=== PATIENT | male | born 1965 | race African-American/Black ===

== ENCOUNTER 2016-11-24 09:51 | Inpatient (IN) | payer OTHER ==
[2016-11-24 10:17] VITALS: BMI 21.5
--- NOTE | 2016-11-24 10:30 | HP ---
CIWA Score - CIWA Score Nausea/Vomitin-Mild Nausea/No Vomiting Muscle Tremors: 4-Moderate,w/Arms Extend Anxiety: 4-Mod. Anxious/Guarded Agitation: 1-Slight > Activity Paroxysmal Sweats: 1-Minimal Palms Moist Orientation: 1-Uncertain about Date Tacttile Disturbances: 1-Very Mild Itch/Numbness Auditory Disturbances: 1-Very Mild Visual Disturbances: 1-Very Mild Sensitivity Headache: 1-Very Mild CIWA-Ar Total Score: 16 Admission ROS BHS - HPI Chief Complaint: I need a hand to stop, I can't do it on my own Allergies/Adverse Reactions: Allergies Allergy/AdvReac Type Severity Reaction Status Date / Time No Known Drug Allergies Allergy Verified 07/20/16 16:04 egg AdvReac Intermediate Vomiting Verified 07/20/16 16:04 mayonaise Allergy Intermediate Swelling Uncoded 07/20/16 16:04 History of Present Illness: 51 yo gentleman here for detox from alcohol - one of several admissions, history of alcohol related seizure and black out - last seizure in june 2016 (poor memory however). Exam Limitations: Clinical Condition - Ebola screening Have you traveled outside of the country in the last 21 days: No Have you had contact with anyone from an Ebola affected area: No Have you been sick,other than usual withdrawal symptoms: No Do you have a fever: No Patient History - Patient Medical History Hx Anemia: No Hx Asthma: No Hx Chronic Obstructive Pulmonary Disease (COPD): No Hx Cancer: No Hx Cardiac Disorders: No Hx Congestive Heart Failure: No Hx Hypertension: No Hx Hypercholesterolemia: No Hx Pacemaker: No HX Cerebrovascular Accident: No Hx Seizures: Yes (alcohol related-07/16/2016) Hx Dementia: No Hx Diabetes: No Hx Gastrointestinal Disorders: No Hx Liver Disease: No Hx Genitourinary Disorders: No Hx Sexually Transmitted Disorders: No Hx Renal Disease (ESRD): No Hx Thyroid Disease: No Hx Human Immunodeficiency Virus (HIV): No (neg 07/21/16) Hx Hepatitis C: No Hx Depression: Yes (never hospitalized) Hx Suicide Attempt: No Hx Bipolar Disorder: No Hx Schizophrenia: No - Patient Surgical History Past Surgical History: No Hx Neurologic Surgery: No Hx Cataract Extraction: No Hx Cardiac Surgery: No Hx Lung Surgery: No Hx Breast Surgery: No Hx Breast Biopsy: No Hx Abdominal Surgery: No Hx Appendectomy: No Hx Cholecystectomy: No Hx Genitourinary Surgery: No Hx Section: No Hx Orthopedic Surgery: No Anesthesia Reaction: No - PPD History Previous Implant?: Yes Documented Results: Negative w/proof Date: 01/19/16 Results: 0 mm PPD to be Administered?: No - Reproductive History Patient is a Female of Child Bearing Age (11 -55 yrs old): No (male) - Smoking Cessation Smoking history: Current every day smoker Have you smoked in the past 12 months: Yes Aproximately how many cigarettes per day: 20 Cigars Per Day: 0 Hx Chewing Tobacco Use: No Initiated information on smoking cessation: Yes 'Breaking Loose' booklet given: 11/24/16 (give on floor) - Substance & Tx. History Hx Alcohol Use: Yes Hx Substance Use: No Substance Use Type: Alcohol Hx Substance Use Treatment: Yes (detox, rehab) - Substances Abused Alcohol Route: Oral Frequency: Daily Amount used: 1 pint Age of first use: 15 Date of Last Use: 11/24/16 Family Disease History - Family Disease History Family Disease History: Other: Father (alive, etoh), Brother (NO CONTACT) Admission Physical Exam [facility] - Vital Signs Vital Signs: Vital Signs - 24 hr 11/24/16 10:15 Temperature 98.3 F Pulse Rate 97 H Respiratory 18 Rate Blood Pressure 115/83 - Physical General Appearance: Yes: Nourished, Appropriately Dressed, Mild Distress, Thin, Tremorous, Anxious HEENTM: Yes: Hearing grossly Normal, Normocephalic, Normal Voice, Pharynx Normal Respiratory: Yes: Normal Breath Sounds, No Respiratory Distress Neck: Yes: No masses,lesions,Nodules, Supple Breast: Yes: Breast Exam Deferred Cardiology: Yes: Regular Rhythm, Regular Rate Abdominal: Yes: Soft Genitourinary: Yes: Frequency Back: Yes: Normal Inspection Musculoskeletal: Yes: full range of Motion, Gait Steady Extremities: Yes: Normal Inspection, Normal Range of Motion, Non-Tender Neurological: Yes: Fully Oriented, Alert, Motor Strength 5/5, Normal Mood/Affect , Normal Response Integumentary: Yes: Normal Color, Warm Lymphatic: Yes: Within Normal Limits - Diagnostic (1) Alcohol dependence with uncomplicated withdrawal Current Visit: Yes Status: Chronic (2) Nicotine dependence Current Visit: Yes Status: Chronic Qualifiers: Nicotine product type: cigarettes Substance use status: uncomplicated Qualified Code(s): F17.210 - Nicotine dependence, cigarettes, uncomplicated Cleared for Admission S - Detox or Rehab [facility] Level of Care: Medically Managed Detox Regimen/Protocol: Librium S Breath Alcohol Content Breath Alcohol Content: 0 Urine Drug Screen - Results Drug Screen Negative: No Urine Drug Screen Results: TCA-Tricyclic Antidepress
[2016-11-24] MEDS ORDERED: MAGNESIUM HYDROX 2400MG/30ML ORAL SUSPENSION 30 ML CUP PO PRN (10:31)
[2016-11-24] MEDS ORDERED: IBUPROFEN 400 MG TABLET (FP) PO PRN (10:31)
[2016-11-24] MEDS ORDERED: MENTHOL/PHENOL 1 EACH UD MM PRN (10:31)
[2016-11-24] MEDS ORDERED: P-EPHED 60MG/TRIPROLIDI 2.5MG TABLET PO PRN (10:31)
[2016-11-24] MEDS ORDERED: hydrOXYzine PAMOATE 50 MG CAPSULE (FP) PO PRN (10:31)
[2016-11-24] MEDS ORDERED: chlordiazePOXIDE HCL 25 MG CAPSULE PO PRN (10:31)
[2016-11-24] MEDS ORDERED: MAG HYDROX/AL HYDROX/SIMETH 30 ML UNIT-DOSE CUP PO PRN (10:31)
[2016-11-24] MEDS ORDERED: LOPERAMIDE HCL 2 MG CAPSULE PO PRN (10:31)
[2016-11-24] MEDS ORDERED: ACETAMINOPHEN 325 MG TABLET (FP) PO PRN (10:31)
[2016-11-24] MEDS ORDERED: guaiFENesin/D-METHORPHAN HB 10 ML UNIT-DOSE CUPS PO PRN (10:31)
[2016-11-24] MEDS ORDERED: MAGNESIUM CITRATE 300 ML BOTTLE PO PRN (10:31)
[2016-11-24] MEDS ORDERED: chlordiazePOXIDE HCL 25 MG CAPSULE PO ONE (11:30)
[2016-11-24] MEDS: NICOTINE 21 MG/24 HOURS TOPICAL PATCH TD SCH (12:07)
--- NOTE | 2016-11-24 16:28 | CONSULT ---
[facility] Psychiatric Consult - Data Date of interview: 11/24/16 Admission source: [facility] Identifying data: Readmission to [facility] for this 51 y/o [place]-born male seeking detox treatment on for alcohol dependence.Patient is ,a father of one,now homeless,unemployed and deprived of any means of income. Substance Abuse History: - Smoking Cessation. Smoking history: Current every day smoker. Have you smoked in the past 12 months: Yes. Aproximately how many cigarettes per day: 20. Cigars Per Day: 0. Hx Chewing Tobacco Use: No. Initiated information on smoking cessation: Yes. 'Breaking Loose' booklet given : 11/24/16 (give on floor). - Substance & Tx. History. Hx Alcohol Use: Yes. Hx Substance Use: No. Substance Use Type: Alcohol. Hx Substance Use Treatment : Yes (detox, rehab). - Substances Abused. Alcohol. Route: Oral. Frequency: Daily. Amount used: 1 pint. Age of first use: 15. Date of Last Use : 11/24/16. Confirmed by patient in this interview. Medical History: GERD and seizure disorder. Psychiatric History: Patient denies. Physical/Sexual Abuse/Trauma History: Patient denies. Additional Comment: Urine Drug Screen Results: TCA-Tricyclic Antidepressant.Noted. Mental Status Exam - Mental Status Exam Alert and Oriented to: Time, Place, Person Cognitive Function: Good Patient Appearance: Disheveled Mood: Anxious, Apprehensive Affect: Mood Congruent Patient Behavior: Fatigued, Cooperative Speech Pattern: Clear Voice Loudness: Normal Thought Process: Goal Oriented Thought Disorder: Not Present Hallucinations: Denies Suicidal Ideation: Denies Homicidal Ideation: Denies Insight/Judgement: Fair Sleep: Poorly, Difficulty falling asleep Appetite: Good Muscle strength/Tone: Normal Gait/Station: Normal Psychiatric Findings - Problem List ([place] 1, 2,3) (1) Alcohol dependence with uncomplicated withdrawal Current Visit: Yes Status: Acute (2) Nicotine dependence Current Visit: Yes Status: Acute Qualifiers: Nicotine product type: cigarettes Substance use status: uncomplicated Qualified Code(s): F17.210 - Nicotine dependence, cigarettes, uncomplicated (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
[2016-11-24] MEDS: chlordiazePOXIDE HCL 25 MG CAPSULE PO SCH ×2 (17:21→23:01)
[2016-11-24 19:16] LABS: URINE APPEARANCE SLCLOUDY; URINE BILIRUBIN NEGATIVE (NEGATIVE); URINE COLOR AMBER; URINE GLUCOSE (UA) NEGATIVE (NEGATIVE); URINE KETONE 1+ (NEGATIVE); URINE NITRITE NEGATIVE (NEGATIVE); URINE PROTEIN NEGATIVE (NEGATIVE); URINE UROBILINOGEN 2.0 E.U/dl E.U./dl (0.2-1.0)
[2016-11-24 19:17] LABS: URINE BLOOD 2+ (NEGATIVE); URINE LEUK ESTERASE 2+ (NEGATIVE)
[2016-11-24 19:54] LABS: URINE BACTERIA FEW /hpf (NONE SEEN)
--- NOTE | 2016-11-24 21:01 | EKG ---
Test Reason : Blood Pressure : / mmHG Vent. Rate : 083 BPM Atrial Rate : 083 BPM P-R Int : 126 ms QRS Dur : 062 ms QT Int : 354 ms P-R-T Axes : 076 050 048 degrees QTc Int : 415 ms NORMAL SINUS RHYTHM NORMAL ECG NO PREVIOUS ECGS AVAILABLE Confirmed by CHENTE NAVARRETE MD ([id number]) on 11/24/2016 9:00:59 PM Referred By: Confirmed By:CHENTE NAVARRETE MD
[2016-11-24] MEDS ORDERED: diphenhydrAMINE HCL 50 MG CAPSULE PO PRN (22:00)
[2016-11-24] MEDS: THIAMINE HCL 100 MG TABLET (FP) PO SCH (23:01)
[2016-11-25] MEDS: chlordiazePOXIDE HCL 25 MG CAPSULE PO SCH ×4 (06:15→22:15)
[2016-11-25] MEDS: PRENATAL VITAMINS W/ FOLIC ACID TABLET (FP) PO SCH (10:16)
[2016-11-25] MEDS: NICOTINE 21 MG/24 HOURS TOPICAL PATCH TD SCH (10:16)
[2016-11-25 10:21] LABS: MCH 31.2 pg (25.7-33.7); MCHC 33.2 g/dl (32.0-35.9); MEAN PLT VOLUME 8.6 fl (7.5-11.1); PLATELET COUNT 145 K/MM3 (134-434); RDW 13.6 % (11.9-15.9); WHITE BLOOD COUNT 4.7 K/mm3 (4.0-10.0)
[2016-11-25 10:34] LABS: ALBUMIN 3.3 g/dl (3.4-5.0); ANION GAP 8 (8-16); CALCIUM 8.3 mg/dL (8.5-10.1); CO2 28 mmol/L (21-32); GLUCOSE,RANDOM 99 mg/dL (74-106)
[2016-11-25 10:38] LABS: ALK PHOS 89 U/L (45-117); BILIRUBIN,TOTAL 0.3 mg/dL (0.2-1.0); CREATININE 0.8 mg/dL (0.7-1.3); SGOT/AST 42 U/L (15-37); SGPT/ALT 41 U/L (12-78); TOT PROT 6.1 g/dl (6.4-8.2)
[2016-11-25 14:47] LABS: HIV 1 & 2 AB NEGATIVE; HIV 1 AGp24 NEGATIVE
--- NOTE | 2016-11-25 14:51 | PN ---
S CIWA - CIWA Score Nausea/Vomitin Muscle Tremors: 4-Moderate,w/Arms Extend Anxiety: 4-Mod. Anxious/Guarded Agitation: 4-Moderately Restless Paroxysmal Sweats: No Perspiration Orientation: 0-Oriented Tacttile Disturbances: 1-Very Mild Itch/Numbness Auditory Disturbances: 0-None Visual Disturbances: 0-None Headache: 2-Mild CIWA-Ar Total Score: 18 BHS Progress Note (SOAP) Subjective: Anxious, sweating, tremor, interrupted sleep, nausea Objective: Last Vital Signs Temp Pulse Resp BP Pulse Ox 97.0 F L 106 H 20 135/93 11/25/16 13:10 11/25/16 13:10 11/25/16 13:10 11/25/16 13:10 Laboratory Tests 11/24/16 11/25/16 11/25/16 18:00 08:00 08:00 WBC 4.7 RBC 4.30 Hgb 13.4 Hct 40.4 MCV 94.0 MCHC 33.2 RDW 13.6 Plt Count 145 D MPV 8.6 Sodium 142 Potassium 3.9 Chloride 106 Carbon Dioxide 28 Anion Gap 8 BUN 9 Creatinine 0.8 Creat Clearance w eGFR > 60 Random Glucose 99 Calcium 8.3 L Total Bilirubin 0.3 D AST 42 H D ALT 41 Alkaline Phosphatase 89 Total Protein 6.1 L Albumin 3.3 L Urine Color Kelsey Urine Appearance Slcloudy Urine pH 6.0 Ur Specific [place] 1.024 Urine Protein Negative Urine Glucose (UA) Negative Urine Ketones 1+ H Urine Blood 2+ H Urine Nitrite Negative Urine Bilirubin Negative Urine Urobilinogen 2.0 e.u/dl Ur Leukocyte Esterase 2+ H Urine RBC 6-9 Urine WBC 10-15 Urine Bacteria Few HIV 1&2 Antibody Screen HIV P24 Antigen 11/25/16 08:00 WBC RBC Hgb Hct MCV MCHC RDW Plt Count MPV Sodium Potassium Chloride Carbon Dioxide Anion Gap BUN Creatinine Creat Clearance w eGFR Random Glucose Calcium Total Bilirubin AST ALT Alkaline Phosphatase Total Protein Albumin Urine Color Urine Appearance Urine pH Ur Specific [place] Urine Protein Urine Glucose (UA) Urine Ketones Urine Blood Urine Nitrite Urine Bilirubin Urine Urobilinogen Ur Leukocyte Esterase Urine RBC Urine WBC Urine Bacteria HIV 1&2 Antibody Screen Negative HIV P24 Antigen Negative Labs noted: Abnormal UA (microscopic hematuria) Assessment: 11/25/16 14:50 Withdrawal symptoms Abnormal UA/Microscopic hematuria Plan: Continue detox Abnormal UA/Microscopic hematuria: encouraged to drink lots of water, repeat UA and send urine C&S to rule out UTI
[2016-11-25 17:41] LABS: URINE APPEARANCE CLEAR; URINE BILIRUBIN NEGATIVE (NEGATIVE); URINE BLOOD NEGATIVE (NEGATIVE); URINE COLOR YELLOW; URINE GLUCOSE (UA) NEGATIVE (NEGATIVE); URINE KETONE NEGATIVE (NEGATIVE); URINE NITRITE NEGATIVE (NEGATIVE); URINE PROTEIN NEGATIVE (NEGATIVE); URINE UROBILINOGEN NEGATIVE E.U./dl (0.2-1.0)
[2016-11-25 17:42] LABS: URINE LEUK ESTERASE TRACE (NEGATIVE)
[2016-11-25 17:45] LABS: URINE BACTERIA RARE /hpf (NONE SEEN); URINE MUCUS RARE; URINE RBC <1 /hpf (0-3); URINE WBC 30 /hpf (3-5)
[2016-11-25] MEDS: THIAMINE HCL 100 MG TABLET (FP) PO SCH (22:15)
[2016-11-26] MEDS: chlordiazePOXIDE HCL 25 MG CAPSULE PO SCH ×2 (05:34→10:10)
[2016-11-26] MEDS: PRENATAL VITAMINS W/ FOLIC ACID TABLET (FP) PO SCH (10:10)
[2016-11-26] MEDS: NICOTINE 21 MG/24 HOURS TOPICAL PATCH TD SCH (10:10)
--- NOTE | 2016-11-26 11:22 | PN ---
S CIWA - CIWA Score Nausea/Vomitin-No Nausea/No Vomiting Muscle Tremors: 3 Anxiety: 4-Mod. Anxious/Guarded Agitation: 3 Paroxysmal Sweats: 3 Orientation: 0-Oriented Tacttile Disturbances: 0-None Auditory Disturbances: 0-None Visual Disturbances: 0-None Headache: 0-None Present CIWA-Ar Total Score: 13 BHS Progress Note (SOAP) Subjective: Anxiety,tremors,sweating,interrupted sleep,restless Objective: 11/26/16 11:22 Vital Signs - 8 hr 11/26/16 11/26/16 11/26/16 03:28 06:04 09:41 Temperature 96.1 F L 96.4 F L Pulse Rate 78 64 Respiratory 18 18 18 Rate Blood Pressure 119/90 116/89 Laboratory Tests 11/24/16 11/25/16 11/25/16 18:00 08:00 08:00 WBC 4.7 RBC 4.30 Hgb 13.4 Hct 40.4 MCV 94.0 MCHC 33.2 RDW 13.6 Plt Count 145 D MPV 8.6 Sodium 142 Potassium 3.9 Chloride 106 Carbon Dioxide 28 Anion Gap 8 BUN 9 Creatinine 0.8 Creat Clearance w eGFR > 60 Random Glucose 99 Calcium 8.3 L Total Bilirubin 0.3 D AST 42 H D ALT 41 Alkaline Phosphatase 89 Total Protein 6.1 L Albumin 3.3 L Urine Color Kelsey Urine Appearance Slcloudy Urine pH 6.0 Ur Specific [place] 1.024 Urine Protein Negative Urine Glucose (UA) Negative Urine Ketones 1+ H Urine Blood 2+ H Urine Nitrite Negative Urine Bilirubin Negative Urine Urobilinogen 2.0 e.u/dl Ur Leukocyte Esterase 2+ H Urine RBC 6-9 Urine WBC 10-15 Ur Epithelial Cells Urine Bacteria Few Urine Mucus RPR Titer HIV 1&2 Antibody Screen HIV P24 Antigen 11/25/16 11/25/16 11/25/16 08:00 08:00 15:07 WBC RBC Hgb Hct MCV MCHC RDW Plt Count MPV Sodium Potassium Chloride Carbon Dioxide Anion Gap BUN Creatinine Creat Clearance w eGFR Random Glucose Calcium Total Bilirubin AST ALT Alkaline Phosphatase Total Protein Albumin Urine Color Yellow Urine Appearance Clear Urine pH 8.0 D Ur Specific [place] 1.020 Urine Protein Negative Urine Glucose (UA) Negative Urine Ketones Negative Urine Blood Negative Urine Nitrite Negative Urine Bilirubin Negative Urine Urobilinogen Negative Ur Leukocyte Esterase Trace H D Urine RBC <1 Urine WBC 30 Ur Epithelial Cells Rare Urine Bacteria Rare Urine Mucus Rare RPR Titer Nonreactive HIV 1&2 Antibody Screen Negative HIV P24 Antigen Negative labs noted Assessment: 11/26/16 11:23 Withdrawal sx. Plan: Continue detox
[2016-11-26] MEDS: chlordiazePOXIDE 5 MG CAPSULE PO SCH ×2 (17:08→22:12)
[2016-11-26] MEDS: THIAMINE HCL 100 MG TABLET (FP) PO SCH (22:12)
[2016-11-27] MEDS: chlordiazePOXIDE 5 MG CAPSULE PO SCH ×2 (05:46→10:12)
--- NOTE | 2016-11-27 09:34 | PN ---
BHS Progress Note (SOAP) Subjective: Sweating,interrupted sleep,restless Objective: 11/27/16 09:32 Vital Signs - 8 hr 11/27/16 11/27/16 03:26 06:05 Temperature 97.4 F L Pulse Rate 88 Respiratory 18 18 Rate Blood Pressure 144/99 Laboratory Tests 11/24/16 11/25/16 11/25/16 18:00 08:00 08:00 WBC 4.7 RBC 4.30 Hgb 13.4 Hct 40.4 MCV 94.0 MCHC 33.2 RDW 13.6 Plt Count 145 D MPV 8.6 Sodium Potassium Chloride Carbon Dioxide Anion Gap BUN Creatinine Creat Clearance w eGFR Random Glucose Calcium Total Bilirubin AST ALT Alkaline Phosphatase Total Protein Albumin Urine Color Kelsey Urine Appearance Slcloudy Urine pH 6.0 Ur Specific [place] 1.024 Urine Protein Negative Urine Glucose (UA) Negative Urine Ketones 1+ H Urine Blood 2+ H Urine Nitrite Negative Urine Bilirubin Negative Urine Urobilinogen 2.0 e.u/dl Ur Leukocyte Esterase 2+ H Urine RBC 6-9 Urine WBC 10-15 Ur Epithelial Cells Urine Bacteria Few Urine Mucus RPR Titer Hepatitis C Antibody 0.1 HIV 1&2 Antibody Screen HIV P24 Antigen 11/25/16 11/25/16 11/25/16 08:00 08:00 08:00 WBC RBC Hgb Hct MCV MCHC RDW Plt Count MPV Sodium 142 Potassium 3.9 Chloride 106 Carbon Dioxide 28 Anion Gap 8 BUN 9 Creatinine 0.8 Creat Clearance w eGFR > 60 Random Glucose 99 Calcium 8.3 L Total Bilirubin 0.3 D AST 42 H D ALT 41 Alkaline Phosphatase 89 Total Protein 6.1 L Albumin 3.3 L Urine Color Urine Appearance Urine pH Ur Specific [place] Urine Protein Urine Glucose (UA) Urine Ketones Urine Blood Urine Nitrite Urine Bilirubin Urine Urobilinogen Ur Leukocyte Esterase Urine RBC Urine WBC Ur Epithelial Cells Urine Bacteria Urine Mucus RPR Titer Nonreactive Hepatitis C Antibody HIV 1&2 Antibody Screen Negative HIV P24 Antigen Negative 11/25/16 15:07 WBC RBC Hgb Hct MCV MCHC RDW Plt Count MPV Sodium Potassium Chloride Carbon Dioxide Anion Gap BUN Creatinine Creat Clearance w eGFR Random Glucose Calcium Total Bilirubin AST ALT Alkaline Phosphatase Total Protein Albumin Urine Color Yellow Urine Appearance Clear Urine pH 8.0 D Ur Specific [place] 1.020 Urine Protein Negative Urine Glucose (UA) Negative Urine Ketones Negative Urine Blood Negative Urine Nitrite Negative Urine Bilirubin Negative Urine Urobilinogen Negative Ur Leukocyte Esterase Trace H D Urine RBC <1 Urine WBC 30 Ur Epithelial Cells Rare Urine Bacteria Rare Urine Mucus Rare RPR Titer Hepatitis C Antibody HIV 1&2 Antibody Screen HIV P24 Antigen labs noted, U/C&S is still pending Assessment: 11/27/16 09:33 Withdrawal sx. Plan: Continue detox
[2016-11-27] MEDS: NICOTINE 21 MG/24 HOURS TOPICAL PATCH TD SCH (10:12)
[2016-11-27] MEDS: PRENATAL VITAMINS W/ FOLIC ACID TABLET (FP) PO SCH (10:12)
[2016-11-27] MEDS: chlordiazePOXIDE HCL 10 MG CAPSULE PO SCH ×2 (17:14→22:11)
[2016-11-27] MEDS: THIAMINE HCL 100 MG TABLET (FP) PO SCH (22:10)
[2016-11-28] MEDS: chlordiazePOXIDE HCL 10 MG CAPSULE PO SCH (05:54)
[2016-11-28 06:00] VITALS: PULSE 85
[2016-11-28 09:16] VITALS: BP 132/90; TEMP 96.4
--- NOTE | 2016-11-28 14:34 | DS ---
[facility] Detox Discharge Summary Admission Date: 11/24/16 Discharge Date: 11/28/16 - History Present History: Alcohol Dependence Pertinent Past History: GERD Umbilical hernia - Physical Exam Results Vital Signs: Vital Signs Temperature 96.4 F L 11/28/16 09:16 Pulse Rate 85 11/28/16 09:16 Respiratory Rate 18 11/28/16 09:16 Blood Pressure 132/90 11/28/16 09:16 O2 Sat by Pulse Oximetry (%) Pertinent Admission Physical Exam Findings: Withdrawal sx. Laboratory Last Values WBC 4.7 K/mm3 (4.0-10.0) 11/25/16 08:00 RBC 4.30 M/mm3 (4.00-5.60) 11/25/16 08:00 Hgb 13.4 GM/dL (11.7-16.9) 11/25/16 08:00 Hct 40.4 % (35.4-49) 11/25/16 08:00 MCV 94.0 fl (80-96) 11/25/16 08:00 MCHC 33.2 g/dl (32.0-35.9) 11/25/16 08:00 RDW 13.6 % (11.9-15.9) 11/25/16 08:00 Plt Count 145 K/MM3 (134-434) D 11/25/16 08:00 MPV 8.6 fl (7.5-11.1) 11/25/16 08:00 Sodium 142 mmol/L (136-145) 11/25/16 08:00 Potassium 3.9 mmol/L (3.5-5.1) 11/25/16 08:00 Chloride 106 mmol/L (98-107) 11/25/16 08:00 Carbon Dioxide 28 mmol/L (21-32) 11/25/16 08:00 Anion Gap 8 (8-16) 11/25/16 08:00 BUN 9 mg/dL (7-18) 11/25/16 08:00 Creatinine 0.8 mg/dL (0.7-1.3) 11/25/16 08:00 Creat Clearance w eGFR > 60 (>60) 11/25/16 08:00 Random Glucose 99 mg/dL (74-106) 11/25/16 08:00 Calcium 8.3 mg/dL (8.5-10.1) L 02/26/17 08:00 Total Bilirubin 0.3 mg/dL (0.2-1.0) D 11/25/16 08:00 AST 42 U/L (15-37) H D 11/25/16 08:00 ALT 41 U/L (12-78) 11/25/16 08:00 Alkaline Phosphatase 89 U/L (45-117) 11/25/16 08:00 Total Protein 6.1 g/dl (6.4-8.2) L 11/25/16 08:00 Albumin 3.3 g/dl (3.4-5.0) L 11/25/16 08:00 Urine Color Yellow 11/25/16 15:07 Urine Appearance Clear 11/25/16 15:07 Urine pH 8.0 (5.0-8.0) D 11/25/16 15:07 Ur Specific [place] 1.020 (1.001-1.035) 11/25/16 15:07 Urine Protein Negative (NEGATIVE) 11/25/16 15:07 Urine Glucose (UA) Negative (NEGATIVE) 11/25/16 15:07 Urine Ketones Negative (NEGATIVE) 11/25/16 15:07 Urine Blood Negative (NEGATIVE) 11/25/16 15:07 Urine Nitrite Negative (NEGATIVE) 11/25/16 15:07 Urine Bilirubin Negative (NEGATIVE) 11/25/16 15:07 Urine Urobilinogen Negative E.U./dl (0.2-1.0) 11/25/16 15:07 Ur Leukocyte Esterase Trace (NEGATIVE) H D 11/25/16 15:07 Urine RBC <1 /hpf (0-3) 11/25/16 15:07 Urine WBC 30 /hpf (3-5) 11/25/16 15:07 Ur Epithelial Cells Rare /hpf (FEW) 11/25/16 15:07 Urine Bacteria Rare /hpf (NONE SEEN) 11/25/16 15:07 Urine Mucus Rare 11/25/16 15:07 RPR Titer Nonreactive (NONREACTIVE) 11/25/16 08:00 Hepatitis C Antibody 0.1 s/co ratio (0.0-0.9) 11/25/16 08:00 HIV 1&2 Antibody Screen Negative 11/25/16 08:00 HIV P24 Antigen Negative 11/25/16 08:00 Microbiology 11/25/16 15:07 Urine - Urine Clean Catch Urine Culture - Final Escherichia Coli Bactrim DS bid x 7 days given labs noted - Treatment Hospital Course: Detox Protocol Followed, Detoxed Safely, Responded well, Discharged Condition Good Patient has Accepted a Rehab Referral to: Self help group - Medication Discharge Medications: Ambulatory Orders NK [No Known Home Medication] 11/24/16 - Diagnosis (1) Alcohol dependence with uncomplicated withdrawal Status: Acute (2) Alcohol-induced sleep disorder Status: Acute (3) Nicotine dependence Status: Acute Qualifiers: Nicotine product type: cigarettes Substance use status: uncomplicated Qualified Code(s): F17.210 - Nicotine dependence, cigarettes, uncomplicated (4) Alcohol-induced mood disorder Status: Chronic (5) GERD (gastroesophageal reflux disease) Status: Chronic Qualifiers: Esophagitis presence: without esophagitis Qualified Code(s): K21.9 - Gastro-esophageal reflux disease without esophagitis - AMA Did Patient Leave Against Medical Advice: No
[2016-11-28] MEDS ORDERED: SULFAMETHOXAZOLE/TRIMETHOPRIM 800MG/160MG D.S. TABLET PO SCH (22:00)
== END 2016-11-28 10:14 | disposition home or self-care (01) | DRG 775 ==
LOC: YASAS 09:51 → Y3N 11:20
PROVIDERS: ADMIT Internal Medicine; ATTEND Internal Medicine
PROC: HZ2ZZZZ Detoxification Services for Substance Abuse Treatment (ICD-10-PCS; principal; 2016-11-28)
DX: F10.230 Alcohol dependence with withdrawal, uncomplicated (principal); F17.210 Nicotine dependence, cigarettes, uncomplicated; F19.24 Other psychoactive substance dependence with psychoactive substance-induced mood disorder; K21.9 Gastro-esophageal reflux disease without esophagitis; Z59.0 Homelessness
CPT/HCPCS: 36415; 80053; 81003; 81015; 85027; 86593; 87086; 87186; 87389; 93005; 93010

== ENCOUNTER 2017-01-28 19:29 | Inpatient (IN) | payer OTHER ==
[2017-01-28 20:49] VITALS: BMI 22.1
--- NOTE | 2017-01-28 21:09 | HP ---
CIWA Score - CIWA Score Nausea/Vomitin-No Nausea/No Vomiting Muscle Tremors: 4-Moderate,w/Arms Extend Anxiety: 4-Mod. Anxious/Guarded Agitation: 4-Moderately Restless Paroxysmal Sweats: 3 Orientation: 0-Oriented Tacttile Disturbances: 3-Moderate Itch/Numb/Burn Auditory Disturbances: 2-Mild Harshness/Frighten Visual Disturbances: 0-None Headache: 0-None Present CIWA-Ar Total Score: 20 Admission ROS BHS - HPI Chief Complaint: C/O WITHDRAWAL SX'S. SEEKING DETOX TXMENT Allergies/Adverse Reactions: Allergies Allergy/AdvReac Type Severity Reaction Status Date / Time No Known Drug Allergies Allergy Verified 07/20/16 16:04 egg AdvReac Intermediate Vomiting Verified 07/20/16 16:04 mayonaise Allergy Intermediate Swelling Uncoded 07/20/16 16:04 History of Present Illness: 52 Y.O. MALE WITH EXTENSIVE H/O ALCOHOLISM ADMITTED FOR DETOX TXMENT. CLIENT IS KNOWN TO [facility]. LAST ADMITTED 10/2016. REPORTS LONGEST CLEAN TIME 6 MONTHS. Exam Limitations: No Limitations - Ebola screening Have you traveled outside of the country in the last 21 days: No (N) Have you had contact with anyone from an Ebola affected area: No Have you been sick,other than usual withdrawal symptoms: Yes Do you have a fever: No - Review of Systems Constitutional: Chills, Loss of Appetite, Night Sweats, Changes in sleep EENT: reports: No Symptoms Reported Respiratory: reports: No Symptoms reported Cardiac: reports: No Symptoms Reported GI: reports: Poor Appetite : reports: Urgency Musculoskeletal: reports: No Symptoms Reported Integumentary: reports: No Symptoms Reported Neuro: reports: Seizure, Tremors Endocrine: reports: No Symptoms Reported Hematology: reports: No Symptoms Reported Psychiatric: reports: Anxious Other Systems: Reviewed and Negative Patient History - Patient Medical History Hx Anemia: No Hx Asthma: No Hx Chronic Obstructive Pulmonary Disease (COPD): No Hx Cancer: No Hx Cardiac Disorders: No Hx Congestive Heart Failure: No Hx Hypertension: No Hx Hypercholesterolemia: No Hx Pacemaker: No HX Cerebrovascular Accident: No Hx Seizures: Yes (alcohol related-07/16/2016) Hx Dementia: No Hx Diabetes: No Hx Gastrointestinal Disorders: No Hx Liver Disease: No Hx Genitourinary Disorders: No Hx Sexually Transmitted Disorders: No Hx Renal Disease (ESRD): No Hx Thyroid Disease: No Hx Human Immunodeficiency Virus (HIV): No Hx Hepatitis C: No Hx Depression: Yes (never hospitalized) Hx Suicide Attempt: No Hx Bipolar Disorder: No Hx Schizophrenia: No Other Medical History: DENIES - Patient Surgical History Past Surgical History: No Hx Neurologic Surgery: No Hx Cataract Extraction: No Hx Cardiac Surgery: No Hx Lung Surgery: No Hx Breast Surgery: No Hx Breast Biopsy: No Hx Abdominal Surgery: No Hx Appendectomy: No Hx Cholecystectomy: No Hx Genitourinary Surgery: No Hx Section: No Hx Orthopedic Surgery: No Anesthesia Reaction: No - PPD History Previous Implant?: Yes Documented Results: Negative w/proof Implanted On Prior [facility] Admission?: Yes Date: 01/19/16 Results: 0 mm PPD to be Administered?: Yes - Smoking Cessation Smoking history: Current every day smoker Have you smoked in the past 12 months: Yes Aproximately how many cigarettes per day: 20 Cigars Per Day: 0 Hx Chewing Tobacco Use: No Initiated information on smoking cessation: Yes 'Breaking Loose' booklet given: 01/28/17 - Substance & Tx. History Hx Alcohol Use: Yes Hx Substance Use: No Substance Use Type: Alcohol Hx Substance Use Treatment: Yes ([facility]) - Substances Abused VODKA Route: Oral Frequency: Daily Amount used: 1.5 PINT Age of first use: 13 Date of Last Use: 01/28/17 Family Disease History - Family Disease History Family Disease History: Other: Father (alive, etoh), Brother (NO CONTACT) Admission Physical Exam BHS - Vital Signs Vital Signs: Vital Signs - 24 hr 01/28/17 20:42 Temperature 98.6 F Pulse Rate 78 Respiratory 16 Rate Blood Pressure 128/90 - Physical General Appearance: Yes: Appropriately Dressed, Mild Distress, Tremorous, Anxious HEENTM: Yes: EOMI, Normocephalic, SLAVA, Pharynx Normal, Other (EDENTULOUS) Respiratory: Yes: Chest Non-Tender, Lungs Clear, Normal Breath Sounds, No Respiratory Distress, No Accessory Muscle Use Neck: Yes: No masses,lesions,Nodules, Supple, Trachea in good position Breast: Yes: Breast Exam Deferred Cardiology: Yes: Regular Rhythm, Regular Rate, S1, S2 Abdominal: Yes: Normal Bowel Sounds, Non Tender, Soft Genitourinary: Yes: Frequency Back: Yes: Normal Inspection Musculoskeletal: Yes: full range of Motion, Gait Steady Extremities: Yes: Normal Capillary Refill, Normal Range of Motion, Non-Tender, Tremors Neurological: Yes: meat grader II-XII NML intact, Fully Oriented, Alert, Motor Strength 5/5 Integumentary: Yes: Normal Color, Warm Lymphatic: Yes: Within Normal Limits - Diagnostic (1) Alcohol dependence with uncomplicated withdrawal Current Visit: Yes Status: Chronic (2) Nicotine dependence Current Visit: Yes Status: Chronic Qualifiers: Nicotine product type: cigarettes Substance use status: uncomplicated Qualified Code(s): F17.210 - Nicotine dependence, cigarettes, uncomplicated (3) Seizure Current Visit: Yes Status: Acute Cleared for Admission [facility] - Detox or Rehab [facility] Level of Care: Medically Managed Detox Regimen/Protocol: Librium S Breath Alcohol Content Breath Alcohol Content: 0 Urine Drug Screen - Results Drug Screen Negative: Yes
[2017-01-28] MEDS ORDERED: ACETAMINOPHEN 325 MG TABLET (FP) PO PRN (21:16)
[2017-01-28] MEDS ORDERED: diphenhydrAMINE HCL 50 MG CAPSULE PO PRN (21:16)
[2017-01-28] MEDS ORDERED: MAGNESIUM HYDROX 2400MG/30ML ORAL SUSPENSION 30 ML CUP PO PRN (21:16)
[2017-01-28] MEDS ORDERED: MAG HYDROX/AL HYDROX/SIMETH 30 ML UNIT-DOSE CUP PO PRN (21:16)
[2017-01-28] MEDS ORDERED: hydrOXYzine PAMOATE 50 MG CAPSULE (FP) PO PRN (21:16)
[2017-01-28] MEDS ORDERED: LOPERAMIDE HCL 2 MG CAPSULE PO PRN (21:16)
[2017-01-28] MEDS ORDERED: IBUPROFEN 400 MG TABLET (FP) PO PRN (21:16)
[2017-01-28] MEDS ORDERED: chlordiazePOXIDE HCL 25 MG CAPSULE PO PRN (21:16)
[2017-01-28] MEDS ORDERED: guaiFENesin/D-METHORPHAN HB 10 ML UNIT-DOSE CUPS PO PRN (21:16)
[2017-01-28] MEDS ORDERED: MAGNESIUM CITRATE 300 ML BOTTLE PO PRN (21:16)
[2017-01-28] MEDS ORDERED: P-EPHED 60MG/TRIPROLIDI 2.5MG TABLET PO PRN (21:16)
[2017-01-28] MEDS ORDERED: MENTHOL/PHENOL 1 EACH UD MM PRN (21:16)
[2017-01-28] MEDS ORDERED: NICOTINE POLACRILEX 2 MG GUM BC PRN (21:16)
[2017-01-29] MEDS: chlordiazePOXIDE HCL 25 MG CAPSULE PO SCH ×5 (01:29→22:21)
[2017-01-29] MEDS: levETIRAcetam 500 MG TABLET (FP) PO SCH ×3 (01:29→22:21)
[2017-01-29] MEDS: NICOTINE 21 MG/24 HOURS TOPICAL PATCH TD SCH ×2 (01:30→10:20)
[2017-01-29] MEDS: THIAMINE HCL 100 MG TABLET (FP) PO SCH ×2 (01:31→22:21)
--- NOTE | 2017-01-29 09:52 | PN ---
S CIWA - CIWA Score Nausea/Vomitin-Mild Nausea/No Vomiting Muscle Tremors: 4-Moderate,w/Arms Extend Anxiety: 3 Agitation: 3 Paroxysmal Sweats: 3 Orientation: 0-Oriented Tacttile Disturbances: 1-Very Mild Itch/Numbness Auditory Disturbances: 0-None Visual Disturbances: 0-None Headache: 0-None Present CIWA-Ar Total Score: 15 BHS Progress Note (SOAP) Subjective: Anxiety,tremors,sweating,interrupted sleep,restless Objective: 01/29/17 09:51 Vital Signs - 8 hr 01/29/17 01/29/17 01/29/17 03:24 06:09 09:34 Temperature 97.4 F L 96.4 F L Pulse Rate 76 86 Respiratory 18 18 18 Rate Blood Pressure 133/94 126/90 Assessment: 01/29/17 09:51 Withdrawal sx. Plan: Continue detox
[2017-01-29 10:02] LABS: URINE APPEARANCE CLEAR; URINE BILIRUBIN NEGATIVE (NEGATIVE); URINE BLOOD NEGATIVE (NEGATIVE); URINE COLOR LTYELLOW; URINE GLUCOSE (UA) NEGATIVE (NEGATIVE); URINE KETONE NEGATIVE (NEGATIVE); URINE NITRITE NEGATIVE (NEGATIVE); URINE PROTEIN NEGATIVE (NEGATIVE); URINE UROBILINOGEN NEGATIVE E.U./dl (0.2-1.0)
[2017-01-29 10:06] LABS: MCH 31.9 pg (25.7-33.7); MCHC 33.1 g/dl (32.0-35.9); MEAN CELL VOLUME 96.2 fl (80-96); MEAN PLT VOLUME 8.2 fl (7.5-11.1); PLATELET COUNT 163 K/MM3 (134-434); RDW 14.2 % (11.9-15.9); WHITE BLOOD COUNT 5.4 K/mm3 (4.0-10.0)
[2017-01-29 10:09] LABS: URINE LEUK ESTERASE TRACE (NEGATIVE)
[2017-01-29 10:16] LABS: ALBUMIN 3.6 g/dl (3.4-5.0); ALK PHOS 66 U/L (45-117); ANION GAP 9 (8-16); BILIRUBIN,TOTAL 0.6 mg/dL (0.2-1.0); CALCIUM 8.7 mg/dL (8.5-10.1); CO2 26 mmol/L (21-32); COCKROFT - GAULT 93.44; CREATININE 0.9 mg/dL (0.7-1.3); GLUCOSE,RANDOM 91 mg/dL (74-106); SGOT/AST 35 U/L (15-37); SGPT/ALT 32 U/L (12-78); TOT PROT 6.5 g/dl (6.4-8.2)
[2017-01-29] MEDS: PRENATAL VITAMINS W/ FOLIC ACID TABLET (FP) PO SCH (10:20)
[2017-01-29 11:21] LABS: URINE BACTERIA MANY /hpf (NONE SEEN); URINE MUCUS RARE; URINE RBC 1 /hpf (0-3); URINE WBC 3 /hpf (3-5)
--- NOTE | 2017-01-29 15:43 | CONSULT ---
[facility] Psychiatric Consult - Data Date of interview: 01/29/17 Admission source: [facility] Identifying data: Another admission to [facility] for this 52 y/o [place]-born male seeking detox treatment on for alcohol dependence.Patient is ,a father of one,now homeless,unemployed and deprived of any means of income. Substance Abuse History: - Smoking Cessation. Smoking history: Current every day smoker. Have you smoked in the past 12 months: Yes. Aproximately how many cigarettes per day: 20. Cigars Per Day: 0. Hx Chewing Tobacco Use: No. Initiated information on smoking cessation: Yes. 'Breaking Loose' booklet given : 01/28/17. - Substance & Tx. History. Hx Alcohol Use: Yes. Hx Substance Use : No. Substance Use Type: Alcohol. Hx Substance Use Treatment: Yes ([facility] - Substances Abused. VODKA. Route: Oral. Frequency: Daily. Amount used: 1.5 PINT. Age of first use: 13. Date of Last Use: 01/28/17. Confirmed by patient. Medical History: GERD and seizure disorder. Psychiatric History: Patient denies. Physical/Sexual Abuse/Trauma History: Patient denies. Additional Comment: Drug Screen is negative. Mental Status Exam - Mental Status Exam Alert and Oriented to: Time, Place, Person Cognitive Function: Good Patient Appearance: Well Groomed Mood: Hopeful Affect: Appropriate, Normal Range Patient Behavior: Fatigued, Appropriate, Cooperative Speech Pattern: Clear Voice Loudness: Normal Thought Process: Goal Oriented Thought Disorder: Not Present Hallucinations: Denies Suicidal Ideation: Denies Homicidal Ideation: Denies Insight/Judgement: Poor Sleep: Well (self-report) Appetite: Good Muscle strength/Tone: Normal Gait/Station: Normal Psychiatric Findings - Problem List ([place] 1, 2,3) (1) Alcohol dependence with uncomplicated withdrawal Current Visit: Yes Status: Acute (2) Nicotine dependence Current Visit: Yes Status: Acute Qualifiers: Nicotine product type: cigarettes Substance use status: uncomplicated Qualified Code(s): F17.210 - Nicotine dependence, cigarettes, uncomplicated (3) GERD (gastroesophageal reflux disease) Current Visit: Yes Status: Chronic Qualifiers: Esophagitis presence: without esophagitis Qualified Code(s): K21.9 - Gastro-esophageal reflux disease without esophagitis (4) Seizure Current Visit: Yes Status: Acute (5) Elbow tendonitis Current Visit: Yes Status: Chronic (6) Umbilical hernia Current Visit: Yes Status: Chronic Qualifiers: Qualified Code(s): K42.9 - Umbilical hernia without obstruction or gangrene - Initial Treatment Plan Initial Treatment Plan: Psychoeducation.Detoxification.Observation.
--- NOTE | 2017-01-29 23:07 | EKG ---
Test Reason : Blood Pressure : / mmHG Vent. Rate : 065 BPM Atrial Rate : 065 BPM P-R Int : 130 ms QRS Dur : 082 ms QT Int : 386 ms P-R-T Axes : 046 066 054 degrees QTc Int : 401 ms NORMAL SINUS RHYTHM NORMAL ECG WHEN COMPARED WITH ECG OF 24-NOV-2016 12:15, NO SIGNIFICANT CHANGE WAS FOUND Confirmed by NOEMÍ DOOLEY MD ([id number]) on 01/29/2017 11:06:51 PM Referred By: Confirmed By:NOEMÍ DOOLEY MD
[2017-01-30] MEDS: chlordiazePOXIDE HCL 25 MG CAPSULE PO SCH ×3 (05:55→17:14)
[2017-01-30] MEDS: NICOTINE 21 MG/24 HOURS TOPICAL PATCH TD SCH (10:48)
[2017-01-30] MEDS: levETIRAcetam 500 MG TABLET (FP) PO SCH ×2 (10:48→22:09)
[2017-01-30] MEDS: PRENATAL VITAMINS W/ FOLIC ACID TABLET (FP) PO SCH (10:48)
--- NOTE | 2017-01-30 14:26 | PN ---
[facility] CIWA - CIWA Score Nausea/Vomitin-No Nausea/No Vomiting Muscle Tremors: 3 Anxiety: 3 Agitation: 4-Moderately Restless Paroxysmal Sweats: 3 Orientation: 0-Oriented Tacttile Disturbances: 0-None Auditory Disturbances: 0-None Visual Disturbances: 0-None Headache: 0-None Present CIWA-Ar Total Score: 13 BHS Progress Note (SOAP) Subjective: Sweating,anxiety,tremors,interrupted sleep,restless Objective: 01/30/17 14:25 Vital Signs - 8 hr 01/30/17 01/30/17 01/30/17 06:31 09:17 13:16 Temperature 96.0 F L 96.5 F L 97.1 F L Pulse Rate 83 83 98 H Respiratory 18 18 20 Rate Blood Pressure 122/92 124/89 138/88 Laboratory Tests 01/28/17 01/29/17 01/29/17 07:00 07:00 07:00 WBC 5.4 RBC 4.14 Hgb 13.2 Hct 39.9 MCV 96.2 H MCHC 33.1 RDW 14.2 Plt Count 163 MPV 8.2 Sodium 142 Potassium 4.0 Chloride 107 Carbon Dioxide 26 Anion Gap 9 BUN 18 D Creatinine 0.9 Creat Clearance w eGFR > 60 Random Glucose 91 Calcium 8.7 Total Bilirubin 0.6 D AST 35 ALT 32 D Alkaline Phosphatase 66 D Total Protein 6.5 Albumin 3.6 Urine Color Urine Appearance Urine pH Ur Specific [place] Urine Protein Urine Glucose (UA) Urine Ketones Urine Blood Urine Nitrite Urine Bilirubin Urine Urobilinogen Ur Leukocyte Esterase Urine RBC Urine WBC Ur Epithelial Cells Urine Bacteria Urine Mucus RPR Titer Hepatitis C Antibody 0.1 01/29/17 01/29/17 07:00 07:00 WBC RBC Hgb Hct MCV MCHC RDW Plt Count MPV Sodium Potassium Chloride Carbon Dioxide Anion Gap BUN Creatinine Creat Clearance w eGFR Random Glucose Calcium Total Bilirubin AST ALT Alkaline Phosphatase Total Protein Albumin Urine Color Ltyellow Urine Appearance Clear Urine pH 6.0 D Ur Specific [place] 1.018 Urine Protein Negative Urine Glucose (UA) Negative Urine Ketones Negative Urine Blood Negative Urine Nitrite Negative Urine Bilirubin Negative Urine Urobilinogen Negative Ur Leukocyte Esterase Trace H Urine RBC 1 Urine WBC 3 Ur Epithelial Cells Rare Urine Bacteria Many Urine Mucus Rare RPR Titer Nonreactive Hepatitis C Antibody labs noted Assessment: 01/30/17 14:26 Withdrawal sx. Plan: Continue detox
[2017-01-30] MEDS: THIAMINE HCL 100 MG TABLET (FP) PO SCH (22:08)
[2017-01-30] MEDS: chlordiazePOXIDE 5 MG CAPSULE PO SCH (22:09)
[2017-01-31] MEDS: chlordiazePOXIDE 5 MG CAPSULE PO SCH ×3 (06:20→17:21)
[2017-01-31] MEDS: NICOTINE 21 MG/24 HOURS TOPICAL PATCH TD SCH (10:28)
[2017-01-31] MEDS: PRENATAL VITAMINS W/ FOLIC ACID TABLET (FP) PO SCH (10:28)
[2017-01-31] MEDS: levETIRAcetam 500 MG TABLET (FP) PO SCH ×2 (10:28→22:21)
--- NOTE | 2017-01-31 15:14 | PN ---
BHS Progress Note (SOAP) Subjective: Sweating,interrupted sleep,restless Objective: 01/31/17 15:14 Vital Signs - 8 hr 01/31/17 01/31/17 09:25 13:30 Temperature 96.1 F L 96.1 F L Pulse Rate 80 93 H Respiratory 20 18 Rate Blood Pressure 118/81 115/84 Laboratory Last Values WBC 5.4 K/mm3 (4.0-10.0) 01/29/17 07:00 RBC 4.14 M/mm3 (4.00-5.60) 01/29/17 07:00 Hgb 13.2 GM/dL (11.7-16.9) 01/29/17 07:00 Hct 39.9 % (35.4-49) 01/29/17 07:00 MCV 96.2 fl (80-96) H 01/29/17 07:00 MCHC 33.1 g/dl (32.0-35.9) 01/29/17 07:00 RDW 14.2 % (11.9-15.9) 01/29/17 07:00 Plt Count 163 K/MM3 (134-434) 01/29/17 07:00 MPV 8.2 fl (7.5-11.1) 01/29/17 07:00 Sodium 142 mmol/L (136-145) 01/29/17 07:00 Potassium 4.0 mmol/L (3.5-5.1) 01/29/17 07:00 Chloride 107 mmol/L (98-107) 01/29/17 07:00 Carbon Dioxide 26 mmol/L (21-32) 01/29/17 07:00 Anion Gap 9 (8-16) 01/29/17 07:00 BUN 18 mg/dL (7-18) D 01/29/17 07:00 Creatinine 0.9 mg/dL (0.7-1.3) 01/29/17 07:00 Creat Clearance w eGFR > 60 (>60) 01/29/17 07:00 Random Glucose 91 mg/dL (74-106) 01/29/17 07:00 Calcium 8.7 mg/dL (8.5-10.1) 01/29/17 07:00 Total Bilirubin 0.6 mg/dL (0.2-1.0) D 01/29/17 07:00 AST 35 U/L (15-37) 01/29/17 07:00 ALT 32 U/L (12-78) D 01/29/17 07:00 Alkaline Phosphatase 66 U/L (45-117) D 01/29/17 07:00 Total Protein 6.5 g/dl (6.4-8.2) 01/29/17 07:00 Albumin 3.6 g/dl (3.4-5.0) 01/29/17 07:00 Urine Color Ltyellow 01/29/17 07:00 Urine Appearance Clear 01/29/17 07:00 Urine pH 6.0 (5.0-8.0) D 01/29/17 07:00 Ur Specific [place] 1.018 (1.001-1.035) 01/29/17 07:00 Urine Protein Negative (NEGATIVE) 01/29/17 07:00 Urine Glucose (UA) Negative (NEGATIVE) 01/29/17 07:00 Urine Ketones Negative (NEGATIVE) 01/29/17 07:00 Urine Blood Negative (NEGATIVE) 01/29/17 07:00 Urine Nitrite Negative (NEGATIVE) 01/29/17 07:00 Urine Bilirubin Negative (NEGATIVE) 01/29/17 07:00 Urine Urobilinogen Negative E.U./dl (0.2-1.0) 01/29/17 07:00 Ur Leukocyte Esterase Trace (NEGATIVE) H 01/29/17 07:00 Urine RBC 1 /hpf (0-3) 01/29/17 07:00 Urine WBC 3 /hpf (3-5) 01/29/17 07:00 Ur Epithelial Cells Rare /hpf (FEW) 01/29/17 07:00 Urine Bacteria Many /hpf (NONE SEEN) 01/29/17 07:00 Urine Mucus Rare 01/29/17 07:00 RPR Titer Nonreactive (NONREACTIVE) 01/29/17 07:00 Hepatitis C Antibody 0.1 s/co ratio (0.0-0.9) 01/28/17 07:00 labs noted Assessment: 01/31/17 15:14 Withdrawal sx. Plan: Continue detox
[2017-01-31] MEDS: THIAMINE HCL 100 MG TABLET (FP) PO SCH (22:21)
[2017-01-31] MEDS: chlordiazePOXIDE HCL 10 MG CAPSULE PO SCH (22:21)
[2017-02-01] MEDS: chlordiazePOXIDE HCL 10 MG CAPSULE PO SCH ×2 (05:53→10:24)
[2017-02-01] MEDS: PRENATAL VITAMINS W/ FOLIC ACID TABLET (FP) PO SCH (10:23)
[2017-02-01] MEDS: levETIRAcetam 500 MG TABLET (FP) PO SCH (10:23)
[2017-02-01] MEDS: NICOTINE 21 MG/24 HOURS TOPICAL PATCH TD SCH (10:23)
[2017-02-01 10:32] VITALS: BP 106/68; PULSE 86; TEMP 95.5
--- NOTE | 2017-02-01 11:54 | DS ---
[facility] Detox Discharge Summary Admission Date: 01/28/17 Discharge Date: 02/01/17 - History Present History: Alcohol Dependence Additional Comments: DETOX COMPLETED.ALERT O X 3. NAD. Pertinent Past History: SEIZURE DISORDER DEPRESSION - Physical Exam Results Vital Signs: Vital Signs Temperature 95.5 F L 02/01/17 10:31 Pulse Rate 86 02/01/17 10:31 Respiratory Rate 18 02/01/17 10:31 Blood Pressure 106/68 02/01/17 10:31 O2 Sat by Pulse Oximetry (%) Pertinent Admission Physical Exam Findings: WITHDRAWALS SX - Treatment Hospital Course: Detox Protocol Followed, Detoxed Safely, Responded well, Discharged Condition Good, Rehab Referral Accepted Patient has Accepted a Rehab Referral to: [id number] - [facility] Discharge Medications: Ambulatory Orders Levetiracetam [Keppra -] 500 mg PO BID 01/28/17 - Diagnosis (1) Alcohol dependence with uncomplicated withdrawal Current Visit: Yes Status: Acute (2) Nicotine dependence Current Visit: Yes Status: Acute Qualifiers: Nicotine product type: cigarettes Substance use status: in withdrawal Qualified Code(s): F17.213 - Nicotine dependence, cigarettes, with withdrawal (3) Seizure Current Visit: Yes Status: Chronic - AMA Did Patient Leave Against Medical Advice: No
== END 2017-02-01 12:20 | disposition other institution (70) | DRG 775 ==
LOC: YASAS 19:29 → Y3N 22:39
PROVIDERS: ADMIT Internal Medicine; ATTEND Internal Medicine
PROC: HZ2ZZZZ Detoxification Services for Substance Abuse Treatment (ICD-10-PCS; principal; 2017-02-01)
DX: F10.230 Alcohol dependence with withdrawal, uncomplicated (principal); F17.213 Nicotine dependence, cigarettes, with withdrawal; G40.509 Epileptic seizures related to external causes, not intractable, without status epilepticus; K21.9 Gastro-esophageal reflux disease without esophagitis; K42.9 Umbilical hernia without obstruction or gangrene; M65.839 Other synovitis and tenosynovitis, unspecified forearm; Z59.0 Homelessness
CPT/HCPCS: 36415; 80053; 81003; 81015; 85027; 86593; 93005; 93010

== ENCOUNTER 2017-02-01 12:25 | Inpatient (IN) | payer OTHER ==
[2017-02-01] MEDS ORDERED: P-EPHED 60MG/TRIPROLIDI 2.5MG TABLET PO PRN (13:31)
[2017-02-01] MEDS ORDERED: ACETAMINOPHEN 325 MG TABLET (FP) PO PRN (13:31)
[2017-02-01] MEDS ORDERED: hydrOXYzine PAMOATE 50 MG CAPSULE (FP) PO PRN (13:31)
[2017-02-01] MEDS ORDERED: diphenhydrAMINE HCL 50 MG CAPSULE PO PRN (13:31)
[2017-02-01] MEDS ORDERED: LOPERAMIDE HCL 2 MG CAPSULE PO PRN (13:31)
[2017-02-01] MEDS ORDERED: MENTHOL/PHENOL 1 EACH UD MM PRN (13:31)
[2017-02-01] MEDS ORDERED: MAGNESIUM CITRATE 300 ML BOTTLE PO PRN (13:31)
[2017-02-01] MEDS ORDERED: MAG HYDROX/AL HYDROX/SIMETH 30 ML UNIT-DOSE CUP PO PRN (13:31)
[2017-02-01] MEDS ORDERED: MAGNESIUM HYDROX 2400MG/30ML ORAL SUSPENSION 30 ML CUP PO PRN (13:31)
[2017-02-01] MEDS ORDERED: IBUPROFEN 400 MG TABLET (FP) PO PRN (13:31)
[2017-02-01] MEDS ORDERED: guaiFENesin/D-METHORPHAN HB 10 ML UNIT-DOSE CUPS PO PRN (13:31)
--- NOTE | 2017-02-01 13:34 | HP ---
[facility] Rehab Assess/Revision - Admission History [facility]hab [facility] Date of Admission to Rehab: - Findings Detox History & Physical reviewed: Yes Concur with findings: Yes Comments/Additional Findings: FOR REHAB PROTOCOL
--- NOTE | 2017-02-01 15:40 | HP ---
Psychiatrist Admission - Data Date of interview: 02/01/17 Admission source: [facility] Identifying data: This is the second Inpatient Rehabilitation admission for this 52 years old [place] male with a 28 years old daughter, unemployed on public assistance and currently homeless. Medical History: alcohol related seizures and acid reflux, smokes cigaretets 1 PPD. Psychiatric History: patient reports distant history of anxiety and depression, no psychiatric hospitalizations, reports was treated withh Zoloft, thinks he needs to restart it to help him "focus on my treatment). Physical/Sexual Abuse/Trauma History: denies history of sexual, physical and verbal abuse. Allergies/Adverse Reactions: Allergies Allergy/AdvReac Type Severity Reaction Status Date / Time No Known Drug Allergies Allergy Verified 01/28/17 22:47 egg AdvReac Intermediate Vomiting Verified 01/28/17 22:47 mayonaise Allergy Intermediate Swelling Uncoded 01/28/17 22:47 Date of last physical exam: 01/28/17 Concur with the findings of this exam: Yes - Substance Abuse/Tx History Hx Alcohol Use: Yes Hx Substance Use: No Substance Use Type: Alcohol (drinking vodka 1 quart) Hx Substance Use Treatment: Yes ( [facility], other detoxrehabs.) - Admission Criteria Previous failed treatment: Yes Poor recovery environment: Yes Comorbidities: Yes Lacks judgement: Yes Mental Status Exam - Mental Status Exam Alert and Oriented to: Time, Place, Person Cognitive Function: Grossly Intact Patient Appearance: Well Groomed Mood: Sad, Anxious Affect: Appropriate, Mood Congruent Patient Behavior: Impulsive, Cooperative Speech Pattern: Clear, Appropriate Voice Loudness: Normal Thought Process: Goal Oriented Thought Disorder: Not Present Hallucinations: Denies Suicidal Ideation: Denies Homicidal Ideation: Denies Insight/Judgement: Fair Sleep: Fair Appetite: Fair Muscle strength/Tone: Normal Gait/Station: Normal Psychiatric Findings - Problem List ([place] 1, 2,3) (1) Alcohol dependence Current Visit: No Status: Acute (2) Anxiety disorder Current Visit: No Status: Acute (3) Mood disorder Current Visit: No Status: Acute (4) Nicotine dependence Current Visit: No Status: Acute Qualifiers: - Initial Treatment Plan Initial Treatment Plan: will restart Zoloft 50 mg po daily, monitor progress as needed.
[2017-02-01] MEDS: levETIRAcetam 500 MG TABLET (FP) PO SCH (21:17)
[2017-02-01] MEDS: THIAMINE HCL 100 MG TABLET (FP) PO SCH (21:17)
[2017-02-02] MEDS: PRENATAL VITAMINS W/ FOLIC ACID TABLET (FP) PO SCH (09:56)
[2017-02-02] MEDS: levETIRAcetam 500 MG TABLET (FP) PO SCH ×2 (09:56→21:16)
[2017-02-02] MEDS: SERTRALINE HCL 50 MG TABLET (FP) PO SCH (09:56)
[2017-02-02 11:35] LABS: HIV 1 & 2 AB NEGATIVE; HIV 1 AGp24 NEGATIVE
[2017-02-02] MEDS: THIAMINE HCL 100 MG TABLET (FP) PO SCH (21:16)
[2017-02-03] MEDS: levETIRAcetam 500 MG TABLET (FP) PO SCH ×2 (09:51→21:13)
[2017-02-03] MEDS: SERTRALINE HCL 50 MG TABLET (FP) PO SCH (09:51)
[2017-02-03] MEDS: PRENATAL VITAMINS W/ FOLIC ACID TABLET (FP) PO SCH (09:51)
[2017-02-03] MEDS: THIAMINE HCL 100 MG TABLET (FP) PO SCH (21:13)
[2017-02-04] MEDS: PRENATAL VITAMINS W/ FOLIC ACID TABLET (FP) PO SCH (10:05)
[2017-02-04] MEDS: SERTRALINE HCL 50 MG TABLET (FP) PO SCH (10:05)
[2017-02-04] MEDS: levETIRAcetam 500 MG TABLET (FP) PO SCH ×2 (10:05→21:14)
[2017-02-04 19:08] LABS: URINE APPEARANCE SLCLOUDY; URINE BILIRUBIN NEGATIVE (NEGATIVE); URINE BLOOD NEGATIVE (NEGATIVE); URINE COLOR LTYELLOW; URINE GLUCOSE (UA) NEGATIVE (NEGATIVE); URINE KETONE NEGATIVE (NEGATIVE); URINE LEUK ESTERASE NEGATIVE (NEGATIVE); URINE NITRITE NEGATIVE (NEGATIVE); URINE PROTEIN NEGATIVE (NEGATIVE); URINE UROBILINOGEN NEGATIVE E.U./dl (0.2-1.0)
[2017-02-04] MEDS: THIAMINE HCL 100 MG TABLET (FP) PO SCH (21:14)
[2017-02-05] MEDS: SERTRALINE HCL 50 MG TABLET (FP) PO SCH (09:42)
[2017-02-05] MEDS: PRENATAL VITAMINS W/ FOLIC ACID TABLET (FP) PO SCH (09:42)
[2017-02-05] MEDS: levETIRAcetam 500 MG TABLET (FP) PO SCH ×2 (09:42→21:15)
[2017-02-05] MEDS: THIAMINE HCL 100 MG TABLET (FP) PO SCH (21:15)
[2017-02-06] MEDS: levETIRAcetam 500 MG TABLET (FP) PO SCH ×2 (09:43→21:09)
[2017-02-06] MEDS: PRENATAL VITAMINS W/ FOLIC ACID TABLET (FP) PO SCH (09:43)
[2017-02-06] MEDS: SERTRALINE HCL 50 MG TABLET (FP) PO SCH (09:43)
[2017-02-06] MEDS: THIAMINE HCL 100 MG TABLET (FP) PO SCH (21:09)
[2017-02-07] MEDS: PRENATAL VITAMINS W/ FOLIC ACID TABLET (FP) PO SCH (10:09)
[2017-02-07] MEDS: levETIRAcetam 500 MG TABLET (FP) PO SCH ×2 (10:09→21:15)
[2017-02-07] MEDS: SERTRALINE HCL 50 MG TABLET (FP) PO SCH (10:09)
[2017-02-07] MEDS: THIAMINE HCL 100 MG TABLET (FP) PO SCH (21:15)
[2017-02-08] MEDS: SERTRALINE HCL 50 MG TABLET (FP) PO SCH (09:49)
[2017-02-08] MEDS: levETIRAcetam 500 MG TABLET (FP) PO SCH ×2 (09:49→21:12)
[2017-02-08] MEDS: PRENATAL VITAMINS W/ FOLIC ACID TABLET (FP) PO SCH (09:49)
[2017-02-08] MEDS: THIAMINE HCL 100 MG TABLET (FP) PO SCH (21:11)
[2017-02-09] MEDS: PRENATAL VITAMINS W/ FOLIC ACID TABLET (FP) PO SCH (09:51)
[2017-02-09] MEDS: SERTRALINE HCL 50 MG TABLET (FP) PO SCH (09:51)
[2017-02-09] MEDS: levETIRAcetam 500 MG TABLET (FP) PO SCH ×2 (09:51→21:12)
[2017-02-09] MEDS: THIAMINE HCL 100 MG TABLET (FP) PO SCH (21:12)
[2017-02-10] MEDS: SERTRALINE HCL 50 MG TABLET (FP) PO SCH (09:53)
[2017-02-10] MEDS: levETIRAcetam 500 MG TABLET (FP) PO SCH ×2 (09:53→21:11)
[2017-02-10] MEDS: PRENATAL VITAMINS W/ FOLIC ACID TABLET (FP) PO SCH (09:53)
[2017-02-10] MEDS: THIAMINE HCL 100 MG TABLET (FP) PO SCH (21:11)
[2017-02-11] MEDS: PRENATAL VITAMINS W/ FOLIC ACID TABLET (FP) PO SCH (10:15)
[2017-02-11] MEDS: SERTRALINE HCL 50 MG TABLET (FP) PO SCH (10:16)
[2017-02-11] MEDS: levETIRAcetam 500 MG TABLET (FP) PO SCH ×2 (10:16→21:34)
[2017-02-11] MEDS: THIAMINE HCL 100 MG TABLET (FP) PO SCH (21:34)
[2017-02-12] MEDS: PRENATAL VITAMINS W/ FOLIC ACID TABLET (FP) PO SCH (09:56)
[2017-02-12] MEDS: levETIRAcetam 500 MG TABLET (FP) PO SCH ×2 (09:56→21:49)
[2017-02-12] MEDS: SERTRALINE HCL 50 MG TABLET (FP) PO SCH (09:56)
[2017-02-12] MEDS: THIAMINE HCL 100 MG TABLET (FP) PO SCH (21:08)
[2017-02-13] MEDS: levETIRAcetam 500 MG TABLET (FP) PO SCH ×2 (09:56→21:12)
[2017-02-13] MEDS: PRENATAL VITAMINS W/ FOLIC ACID TABLET (FP) PO SCH (09:56)
[2017-02-13] MEDS: SERTRALINE HCL 50 MG TABLET (FP) PO SCH (09:56)
[2017-02-13] MEDS: THIAMINE HCL 100 MG TABLET (FP) PO SCH (21:12)
[2017-02-14] MEDS: PRENATAL VITAMINS W/ FOLIC ACID TABLET (FP) PO SCH (10:00)
[2017-02-14] MEDS: SERTRALINE HCL 50 MG TABLET (FP) PO SCH (10:00)
[2017-02-14] MEDS: levETIRAcetam 500 MG TABLET (FP) PO SCH ×2 (10:00→21:14)
--- NOTE | 2017-02-14 12:19 | PN ---
Psychiatric Progress Note Vital Signs: Vital Signs Period Temp Pulse Resp BP Sys/Franco Pulse Ox Last 24 Hr 98.0 F 76 16-18 115/75 Date of Session: 02/14/17 Chief Complaint:: discharge visit HPI: Patient has addressed alcohol, nicotine dependence comorbid anxiety and mood disorder ROS: alcohol related seizures and acid reflux medically managed Current Medications: Active Medications Generic Name Dose Route Start Last Admin Trade Name Freq PRN Reason Stop Dose Admin Acetaminophen 650 mg 02/01/17 13:31 Tylenol - PO Q4H PRN FEVER OR PAIN Al Hydroxide/Mg Hydroxide 30 ml 02/01/17 13:31 Mylanta Oral Suspension - PO Q6H PRN DYSPEPSIA Diphenhydramine HCl 50 mg 02/01/17 13:31 Benadryl - PO HSMR1 PRN FOR ITCHING Eucalyptus/Menthol/Phenol/Sorbitol 1 each 02/01/17 13:31 Cepastat Lozenge - MM Q4H PRN SORE THROAT Guaifenesin 10 ml 02/01/17 13:31 Robitussin Dm - PO Q6H PRN COUGH Hydroxyzine Pamoate 50 mg 02/01/17 13:31 Vistaril - PO Q4H PRN AGITATION Ibuprofen 400 mg 02/01/17 13:31 Motrin - PO Q6H PRN PAIN Levetiracetam 500 mg 02/01/17 22:00 02/14/17 10:00 Keppra - PO 500 mg BID MALLORIE Administration Loperamide HCl 4 mg 02/01/17 13:31 Imodium - PO Q6H PRN DIARRHEA Magnesium Hydroxide 30 ml 02/01/17 13:31 Milk Of Magnesia - PO DAILY PRN CONSTIPATION Multivit/Folic Acid/Iron 1 tab 02/02/17 10:00 02/14/17 10:00 Vitamins (Sjr) - PO 1 tab DAILY MALLORIE Administration Pseudoephedrine/Triprolidine 1 combo 02/01/17 13:31 Actifed - PO TID PRN NASAL CONGESTION Sertraline HCl 50 mg 02/02/17 10:00 02/14/17 10:00 Zoloft - PO 50 mg DAILY MALLORIE Administration Thiamine HCl 100 mg 02/01/17 22:00 02/13/17 21:12 Vitamin B1 - PO 100 mg HS MALLORIE Administration Current Side Effect: No Lab tests ordered: No Lab tests reviewed: Yes Provider note:: Patient will complete his treatment and met his goals on 03/18/16 , will continue to address his issues at [facility] inpatient rehabilitation [facility]. Patient gained insights into his addiction and understands the negative outcome of alcohol drinking and he is motivated to continue maintain abstinence. Scripts for Zoloft provided for 30 days, patient is stable for discharge today. Total face to face time:: 35 Mental Status Exam - Mental Status Exam Alert and Oriented to: Time, Place, Person Cognitive Function: Good Patient Appearance: Well Groomed Mood: Hopeful Affect: Appropriate, Mood Congruent Patient Behavior: Appropriate, Cooperative Speech Pattern: Clear, Appropriate Voice Loudness: Normal Thought Process: Goal Oriented Thought Disorder: Not Present Hallucinations: Denies Suicidal Ideation: Denies Homicidal Ideation: Denies Insight/Judgement: Fair Sleep: Fair Appetite: Fair Muscle strength/Tone: Normal Gait/Station: Normal Psychiatric Treatment Plan - Problem List (1) Alcohol dependence Current Visit: No (2) Anxiety disorder Current Visit: No (3) Mood disorder Current Visit: No (4) Nicotine dependence Current Visit: No Qualifiers:
[2017-02-14] MEDS: THIAMINE HCL 100 MG TABLET (FP) PO SCH (21:14)
[2017-02-15 06:56] VITALS: BP 120/80; PULSE 71; TEMP 97.7
== END 2017-02-15 07:15 | disposition home or self-care (01) | DRG 772 ==
LOC: YASAS 12:25 → Y5N 12:26
PROVIDERS: ADMIT Psychiatry & Neurology Psychiatry; ATTEND Psychiatry & Neurology Psychiatry
PROC: HZ42ZZZ Group Counseling for Substance Abuse Treatment, Cognitive-Behavioral (ICD-10-PCS; principal; 2017-02-15)
DX: F11.20 Opioid dependence, uncomplicated (principal); F17.210 Nicotine dependence, cigarettes, uncomplicated; F41.9 Anxiety disorder, unspecified; F39 Unspecified mood [affective] disorder; F19.24 Other psychoactive substance dependence with psychoactive substance-induced mood disorder; Z59.0 Homelessness
CPT/HCPCS: 36415; 81003; 87086; 87389

== ENCOUNTER 2019-01-22 08:43 | Inpatient (IN) | payer OTHER ==
[2019-01-22 08:59] VITALS: BMI 20.7
--- NOTE | 2019-01-22 09:41 | HP ---
CIWA Score Nausea/Vomitin Muscle Tremors: 2 Anxiety: 2 Agitation: 2 Paroxysmal Sweats: 1-Minimal Palms Moist Orientation: 0-Oriented Tacttile Disturbances: 1-Very Mild Itch/Numbness Auditory Disturbances: 1-Very Mild Visual Disturbances: 0-None Headache: 2-Mild CIWA-Ar Total Score: 13 - Admission Criteria OASAS Guidelines: Admission for Medically Managed Detox: Requires at least one of the followin. CIWA greater than 12 2. Seizures within the past 24 hours 3. Delirium tremens within the past 24 hours 4. Hallucinations within the past 24 hours 5. Acute intervention needed for co occurring medical disorder 6. Acute intervention needed for co occurring psychiatric disorder 7. Severe withdrawal that cannot be handled at a lower level of care (continued vomiting, continued diarrhea, abnormal vital signs) requiring intravenous medication and/or fluids 8. Admission ROS BHS - HPI Chief Complaint: i need help to stop drinking alcohol Allergies/Adverse Reactions: Allergies Allergy/AdvReac Type Severity Reaction Status Date / Time No Known Drug Allergies Allergy Verified 01/22/19 08:51 egg AdvReac Intermediate Vomiting Verified 01/22/19 08:51 mayonaise Allergy Intermediate Swelling Uncoded 01/22/19 08:51 History of Present Illness: this 54 years old with alcohol dependence,seeking detox,withdrawal symptom, multiple admissions in detox,had seizure 4 days ago,seen in [facility] seen in [facility] last detox 12/16 did not recall facility stated loss lower denture nicotine dependence 1 pack/day,requesting patch and gum seizure alcohol related syncope alcohol related depression no med no significant period of sobriety Exam Limitations: No Limitations - Ebola screening Have you traveled outside of the country in the last 21 days: No Have you had contact with anyone from an Ebola affected area: No Do you have a fever: No - Review of Systems Constitutional: Loss of Appetite, Malaise, Night Sweats, Changes in sleep, Weakness, Unintentional Wgt. Loss EENT: reports: Nose Congestion Respiratory: reports: No Symptoms reported Cardiac: reports: No Symptoms Reported GI: reports: Diarrhea, Nausea, Abdominal cramping : reports: No Symptoms Reported Musculoskeletal: reports: Back Pain, Muscle Pain Integumentary: reports: Dryness Neuro: reports: Headache, Tremors Endocrine: reports: No Symptoms Reported Hematology: reports: No Symptoms Reported Psychiatric: reports: No Sypmtoms Reported, Judgement Intact, Mood/Affect Appropiate, Orientated x3, Anxious, Depressed Other Systems: Reviewed and Negative Patient History - Patient Medical History Hx Anemia: No Hx Asthma: No Hx Chronic Obstructive Pulmonary Disease (COPD): No Hx Cancer: No Hx Cardiac Disorders: No Hx Congestive Heart Failure: No Hx Hypertension: No Hx Hypercholesterolemia: No Hx Pacemaker: No HX Cerebrovascular Accident: No Hx Seizures: Yes (last 4 days ago alcohol related) Hx Dementia: No Hx Diabetes: No Hx Gastrointestinal Disorders: No Hx Liver Disease: No Hx Genitourinary Disorders: No Hx Sexually Transmitted Disorders: No Hx Renal Disease (ESRD): No Hx Thyroid Disease: No Hx Human Immunodeficiency Virus (HIV): No (last 11/18 negative) Hx Hepatitis C: No Hx Depression: Yes Hx Suicide Attempt: No Hx Bipolar Disorder: No Hx Schizophrenia: No Other Medical History: no suicidal,no homicidal,fx of right rib 11/18 - Patient Surgical History Past Surgical History: No Hx Neurologic Surgery: No Hx Cataract Extraction: No Hx Cardiac Surgery: No Hx Lung Surgery: No Hx Breast Surgery: No Hx Breast Biopsy: No Hx Abdominal Surgery: No Hx Appendectomy: No Hx Cholecystectomy: No Hx Genitourinary Surgery: No Hx Section: No Hx Orthopedic Surgery: No Anesthesia Reaction: No - PPD History Previous Implant?: Yes Documented Results: Negative w/o proof Implanted On Prior R Admission?: Yes Date: 02/01/17 Results: 0 mm PPD to be Administered?: Yes - Smoking Cessation Smoking history: Current every day smoker Have you smoked in the past 12 months: Yes Aproximately how many cigarettes per day: 20 Cigars Per Day: 0 Hx Chewing Tobacco Use: No Initiated information on smoking cessation: Yes 'Breaking Loose' booklet given: 01/22/19 - Substance & Tx. History Hx Alcohol Use: Yes Hx Substance Use: No Substance Use Type: Alcohol Hx Substance Use Treatment: Yes (11/18 did not recall the facility) - Substances abused Alcohol Substance route: Oral Frequency: Daily Amount used: 5 pt. vodka, 3 beers ( 12 oz cans) Age of first use: 5 Date of last use: 01/21/19 Family Disease History - Family Disease History Family Disease History: Other: Father (alive, etoh), Brother (NO CONTACT) Admission Physical Exam BHS - Vital Signs Vital Signs: Vital Signs - 24 hr 01/22/19 01/22/19 08:47 09:05 Temperature 98.1 F 98.1 F Pulse Rate 85 85 Respiratory 18 18 Rate Blood Pressure 130/89 130/89 - Physical General Appearance: Yes: Moderate Distress, Tremorous, Irritable, Sweating, Anxious HEENTM: Yes: Normal ENT Inspection, SLAVA, Pharynx Normal, Other (old scar left eyebrow) Respiratory: Yes: Lungs Clear, Normal Breath Sounds, No Respiratory Distress Neck: Yes: Within Normal Limits, Supple, Trachea in good position Breast: Yes: Within Normal Limits Cardiology: Yes: Regular Rhythm, Regular Rate, S1, S2 Abdominal: Yes: Normal Bowel Sounds, Non Tender, Soft, Organomegaly Genitourinary: Yes: Within Normal Limits Back: Yes: Muscle Spasm Musculoskeletal: Yes: full range of Motion, Back pain, Muscle Pain Extremities: Yes: Normal Range of Motion, Tremors Neurological: Yes: abseiling instructor II-XII NML intact, Fully Oriented, Alert, Motor Strength 5/5 Integumentary: Yes: Dry Lymphatic: Yes: Within Normal Limits - Diagnostic (1) Alcohol dependence with uncomplicated withdrawal Current Visit: No Status: Acute (2) Nicotine dependence Current Visit: No Status: Acute Qualifiers: (3) Seizure Current Visit: No Status: Chronic (4) Umbilical hernia Current Visit: No Status: Chronic (5) Syncope Current Visit: Yes Status: Acute (6) No natural teeth Current Visit: Yes Status: Acute (7) Nicotine dependence Current Visit: Yes Status: Acute (8) Weight loss Current Visit: Yes Status: Acute Cleared for Admission S - Detox or Rehab [facility] Level of Care: Medically Managed Detox Regimen/Protocol: Librium Breathalyzer - Breathalyzer Breathalyzer: 0.037 Urine Drug Screen - Test Device Lot number: [id number] Expiration date: 08/29/20 - Control Is test valid?: Yes - Results Drug screen NEGATIVE: No Urine drug screen results: OXY-Oxycodone, BZO-Benzodiazepines Inpatient Rehab Admission - Rehab Decision to Admit Inpatient rehab admission?: No
[2019-01-22] MEDS ORDERED: IBUPROFEN 400 MG TABLET (FP) PO PRN (09:52)
[2019-01-22] MEDS ORDERED: MAGNESIUM HYDROX 2400MG/30ML ORAL SUSPENSION 30 ML CUP PO PRN (09:52)
[2019-01-22] MEDS ORDERED: chlordiazePOXIDE HCL 25 MG CAPSULE PO PRN (09:52)
[2019-01-22] MEDS ORDERED: METHOCARBAMOL 500 MG TABLET PO PRN (09:52)
[2019-01-22] MEDS ORDERED: MELATONIN 5 MG TABLETS PO PRN (09:52)
[2019-01-22] MEDS ORDERED: MENTHOL/PHENOL 1 EACH UD MM PRN (09:52)
[2019-01-22] MEDS ORDERED: MAG HYDROX/AL HYDROX/SIMETH 30 ML UNIT-DOSE CUP PO PRN (09:52)
[2019-01-22] MEDS ORDERED: MAGNESIUM CITRATE 300 ML BOTTLE PO PRN (09:52)
[2019-01-22] MEDS ORDERED: BISMUTH SUBSALICYLATE 524 MG/30 ML UD PO PRN (09:52)
[2019-01-22] MEDS ORDERED: NICOTINE POLACRILEX 2 MG GUM BUC PRN (09:52)
[2019-01-22] MEDS ORDERED: hydrOXYzine PAMOATE 25 MG CAPSULE (FP) PO PRN (09:52)
[2019-01-22] MEDS ORDERED: ACETAMINOPHEN 325 MG TABLET (FP) PO PRN ×2 (09:52)
[2019-01-22 12:26] LABS: ALK PHOS 77 U/L (45-117); ANION GAP 4 MMOL/L (8-16); BILIRUBIN,TOTAL 0.1 mg/dL (0.2-1); BLOOD UREA NITROGEN 12 mg/dL (7-18); CALCIUM 9.1 mg/dL (8.5-10.1); CHLORIDE 110 mmol/L (98-107); CO2 30 mmol/L (21-32); CREATININE 0.9 mg/dL (0.55-1.3); GLUCOSE,RANDOM 70 mg/dL (74-106); POTASSIUM 4.7 mmol/L (3.5-5.1); SGOT/AST 30 U/L (15-37); SGPT/ALT 31 U/L (13-61); SODIUM 144 mmol/L (136-145); TOT PROT 7.7 g/dl (6.4-8.2)
[2019-01-22 12:29] LABS: HEMATOCRIT 41.7 % (35.4-49); HEMOGLOBIN 13.6 GM/dL (11.7-16.9); MCH 32.3 pg (25.7-33.7); MCHC 32.6 g/dl (32.0-35.9); MEAN PLT VOLUME 7.5 fl (7.5-11.1); PLATELET COUNT 267 K/MM3 (134-434); RBC 4.21 M/mm3 (4.00-5.60); RDW 14.1 % (11.9-15.9); WHITE BLOOD COUNT 7.5 K/mm3 (4.0-10.0)
[2019-01-22] MEDS: levETIRAcetam 500 MG TABLET (FP) PO SCH ×2 (14:59→22:14)
[2019-01-22] MEDS: PRENATAL VITAMINS W/ FOLIC ACID TABLET (FP) PO SCH (15:02)
[2019-01-22] MEDS: chlordiazePOXIDE HCL 25 MG CAPSULE PO SCH ×3 (15:02→22:14)
[2019-01-22] MEDS: NICOTINE 21 MG/24 HOURS TOPICAL PATCH TD SCH (15:02)
[2019-01-22] MEDS: THIAMINE HCL 100 MG TABLET (FP) PO SCH (22:14)
[2019-01-23] MEDS: chlordiazePOXIDE HCL 25 MG CAPSULE PO SCH ×4 (06:47→22:44)
[2019-01-23] MEDS: levETIRAcetam 500 MG TABLET (FP) PO SCH ×2 (10:10→22:44)
[2019-01-23] MEDS: PRENATAL VITAMINS W/ FOLIC ACID TABLET (FP) PO SCH (10:10)
[2019-01-23] MEDS: NICOTINE 21 MG/24 HOURS TOPICAL PATCH TD SCH (10:11)
--- NOTE | 2019-01-23 12:54 | CONSULT ---
[facility] Psychiatric Consult - Data Date of interview: 01/23/19 Admission source: [facility] Identifying data: Readmission to [facility] for this 54 y/o [place]born male self-referred for detoxification (alcohol). Examined at [address] [place] [address]. Patient is , a father of one, homeless, unemployed and supported on welfare. Substance Abuse History: Confirmed by patient in this session. Details in current [facility] report : Smoking history: Current every day smoker. Have you smoked in the past 12 months: Yes. Aproximately how many cigarettes per day: 20. Cigars Per Day: 0. Hx Chewing Tobacco Use: No. Initiated information on smoking cessation: Yes. 'Breaking Loose' booklet given: 01/22/19. - Substance & Tx. History. Hx Alcohol Use: Yes. Hx Substance Use: No. Substance Use Type : Alcohol. Hx Substance Use Treatment: Yes (11/18 did not recall the facility) . - Substances abused. Alcohol. Substance route: Oral. Frequency: Daily. Amount used: 5 pt. vodka, 3 beers ( 12 oz cans). Age of first use: 5. Date of last use: 01/21/19 Medical History: Remarkable for umbilical hernia, GERD and seizure disorder. Psychiatric History: Patient denies. Physical/Sexual Abuse/Trauma History: No history. Additional Comment: Urine drug screen results: OXY-Oxycodone, BZO- Benzodiazepines. Noted. Mental Status Exam - Mental Status Exam Alert and Oriented to: Time, Place, Person Cognitive Function: Good Patient Appearance: Unkempt, Disheveled Mood: Nervous, Withdrawn Affect: Mood Congruent, Constricted Patient Behavior: Fatigued, Appropriate, Cooperative Speech Pattern: Clear Voice Loudness: Normal Thought Process: Intact, Goal Oriented Thought Disorder: Not Present Hallucinations: Denies Suicidal Ideation: Denies Homicidal Ideation: Denies Insight/Judgement: Poor Sleep: Well Appetite: Good Muscle strength/Tone: Normal Gait/Station: Normal Psychiatric Findings - Problem List ([place] 1, 2,3) (1) Alcohol dependence with uncomplicated withdrawal Current Visit: Yes Status: Acute (2) Nicotine dependence Current Visit: Yes Status: Chronic - Initial Treatment Plan Initial Treatment Plan: Psychoeducation. Sleep hygiene. Detoxification. Support. AA meetings. Observation.
--- NOTE | 2019-01-23 15:17 | PN ---
S CIWA - CIWA Score Nausea/Vomitin-No Nausea/No Vomiting Muscle Tremors: 3 Anxiety: 3 Agitation: 0-Normal Activity Paroxysmal Sweats: 3 Orientation: 0-Oriented Tacttile Disturbances: 1-Very Mild Itch/Numbness Auditory Disturbances: 2-Mild Harshness/Frighten Visual Disturbances: 0-None Headache: 0-None Present CIWA-Ar Total Score: 12 BHS Progress Note (SOAP) Subjective: Sweating, Tremors, Anxious. Objective: PATIENT A & O X 3, OBSERVED AMBULATING ON UNIT UNASSISTED. IN NO ACUTE DISTRESS. PATIENT REPORTS DIFFICULTY IN INITIATING VOID STREAM AND LIMITED OUTPUT OF URINE FREQUENTLY WHEN URINATING. HOWEVER, PATIENT REPORTS THIS TO BE A CHRONIC CONDITION. UA ORDERED. HOWEVER, PATIENT ADVISED TO FOLLOW-UP WITH [facility] WHEN POSSIBLE AFTER DISCHARGE FORM DETOX UNIT FOR THIS CONDITION. PATIENT VERBALIZED UNDERSTANDING OF RECOMMENDATION. 01/23/19 15:13 Vital Signs Temperature 98.1 F 01/23/19 13:09 Pulse Rate 82 01/23/19 13:09 Respiratory Rate 18 01/23/19 13:09 Blood Pressure 127/87 01/23/19 13:09 O2 Sat by Pulse Oximetry (%) Laboratory Tests 01/22/19 01/22/19 01/22/19 09:50 10:00 10:00 WBC 7.5 RBC 4.21 Hgb 13.6 Hct 41.7 MCV 99.0 H MCH 32.3 MCHC 32.6 RDW 14.1 Plt Count 267 D MPV 7.5 Sodium 144 Potassium 4.7 Chloride 110 H Carbon Dioxide 30 Anion Gap 4 L BUN 12 Creatinine 0.9 Creat Clearance w eGFR 88.27 Random Glucose 70 L Calcium 9.1 Total Bilirubin 0.1 L AST 30 ALT 31 Alkaline Phosphatase 77 Total Protein 7.7 Albumin 4.0 RPR Titer HIV 1&2 Antibody Screen Negative HIV P24 Antigen Negative 01/22/19 10:00 WBC RBC Hgb Hct MCV MCH MCHC RDW Plt Count MPV Sodium Potassium Chloride Carbon Dioxide Anion Gap BUN Creatinine Creat Clearance w eGFR Random Glucose Calcium Total Bilirubin AST ALT Alkaline Phosphatase Total Protein Albumin RPR Titer Nonreactive HIV 1&2 Antibody Screen HIV P24 Antigen LABS NOTED. 01/23/19 15:19 Assessment: 01/23/19 15:22 WITHDRAWAL SYMPTOMS. Plan: CONTINUE DETOX. INCREASE DAILY PO FLUID / WATER INTAKE.
[2019-01-23] MEDS: THIAMINE HCL 100 MG TABLET (FP) PO SCH (22:44)
[2019-01-24 01:33] LABS: EPI CELLS 3.5 /HPF (0-5/HPF); PH,URINE 6.5 (5.0-8.0); URINE APPEARANCE TURBID; URINE BACTERIA 676.1 /hpf (NEGATIVE); URINE BILIRUBIN NEGATIVE (NEGATIVE); URINE CASTS 12 /lpf (0-8); URINE COLOR DK YELLOW; URINE GLUCOSE (UA) NEGATIVE (NEGATIVE); URINE KETONE TRACE (NEGATIVE); URINE LEUK ESTERASE 3+ (NEGATIVE); URINE NITRITE NEGATIVE (NEGATIVE); URINE PROTEIN 1+ (NEGATIVE); URINE RBC 4 /hpf (0-4); URINE WBC 223 /hpf (0-5)
[2019-01-24] MEDS: chlordiazePOXIDE HCL 25 MG CAPSULE PO SCH (05:27)
[2019-01-24] MEDS: levETIRAcetam 500 MG TABLET (FP) PO SCH ×2 (10:03→22:26)
[2019-01-24] MEDS: chlordiazePOXIDE HCL 10 MG CAPSULE PO SCH ×3 (10:03→22:26)
[2019-01-24] MEDS: NICOTINE 21 MG/24 HOURS TOPICAL PATCH TD SCH (10:03)
[2019-01-24] MEDS: PRENATAL VITAMINS W/ FOLIC ACID TABLET (FP) PO SCH (10:03)
[2019-01-24] MEDS ORDERED: chlordiazePOXIDE HCL 10 MG CAPSULE PO PRN (11:00)
[2019-01-24] MEDS: SULFAMETHOXAZOLE/TRIMETHOPRIM 800MG/160MG D.S. TABLET PO SCH ×2 (12:47→22:26)
--- NOTE | 2019-01-24 14:50 | PN ---
S CIWA - CIWA Score Nausea/Vomitin-No Nausea/No Vomiting Muscle Tremors: 2 Anxiety: 0-No Anxiety, at Ease Agitation: 1-Slight > Activity Paroxysmal Sweats: 3 Orientation: 0-Oriented Tacttile Disturbances: 1-Very Mild Itch/Numbness Auditory Disturbances: 0-None Visual Disturbances: 0-None Headache: 0-None Present CIWA-Ar Total Score: 7 BHS Progress Note (SOAP) Subjective: Sweating, Tremors. Objective: PATIENT A & O X 3, OBSERVED AMBULATING ON UNIT UNASSISTED. IN NO ACUTE DISTRESS. 01/24/19 14:48 Vital Signs Temperature 97.6 F 01/24/19 13:30 Pulse Rate 81 01/24/19 13:30 Respiratory Rate 20 01/24/19 13:30 Blood Pressure 117/81 01/24/19 13:30 O2 Sat by Pulse Oximetry (%) Laboratory Tests 01/22/19 01/22/19 01/22/19 09:50 10:00 10:00 WBC 7.5 RBC 4.21 Hgb 13.6 Hct 41.7 MCV 99.0 H MCH 32.3 MCHC 32.6 RDW 14.1 Plt Count 267 D MPV 7.5 Sodium 144 Potassium 4.7 Chloride 110 H Carbon Dioxide 30 Anion Gap 4 L BUN 12 Creatinine 0.9 Creat Clearance w eGFR 88.27 Random Glucose 70 L Calcium 9.1 Total Bilirubin 0.1 L AST 30 ALT 31 Alkaline Phosphatase 77 Total Protein 7.7 Albumin 4.0 Urine Color Urine Appearance Urine pH Ur Specific [place] Urine Protein Urine Glucose (UA) Urine Ketones Urine Blood Urine Nitrite Urine Bilirubin Urine Urobilinogen Ur Leukocyte Esterase Urine WBC (Auto) Urine RBC (Auto) Urine Casts (Auto) U Pathogenic Cast Auto U Epithel Cells (Auto) Urine Bacteria (Auto) RPR Titer HIV 1&2 Antibody Screen Negative HIV P24 Antigen Negative 01/22/19 01/23/19 10:00 16:56 WBC RBC Hgb Hct MCV MCH MCHC RDW Plt Count MPV Sodium Potassium Chloride Carbon Dioxide Anion Gap BUN Creatinine Creat Clearance w eGFR Random Glucose Calcium Total Bilirubin AST ALT Alkaline Phosphatase Total Protein Albumin Urine Color Dk yellow Urine Appearance Turbid Urine pH 6.5 Ur Specific [place] 1.030 Urine Protein 1+ H Urine Glucose (UA) Negative Urine Ketones Trace H Urine Blood 1+ H Urine Nitrite Negative Urine Bilirubin Negative Urine Urobilinogen 1.0 Ur Leukocyte Esterase 3+ H Urine WBC (Auto) 223 Urine RBC (Auto) 4 Urine Casts (Auto) 12 U Pathogenic Cast Auto None seen U Epithel Cells (Auto) 3.5 Urine Bacteria (Auto) 676.1 RPR Titer Nonreactive HIV 1&2 Antibody Screen HIV P24 Antigen LABS NOTED. RESULTS OF UA NOTED - WILL START BACTRIM BID FOR POSSIBLE UTI. 01/24/19 14:49 Assessment: 01/24/19 14:49 WITHDRAWAL SYMPTOMS. UTI. 01/24/19 14:49 Plan: CONTINUE DETOX. INCREASE DAILY PO FLUID / WATER INTAKE.
[2019-01-24] MEDS: THIAMINE HCL 100 MG TABLET (FP) PO SCH (22:26)
[2019-01-25] MEDS: chlordiazePOXIDE HCL 10 MG CAPSULE PO SCH ×3 (06:18→22:12)
--- NOTE | 2019-01-25 10:03 | PN ---
S CIWA - CIWA Score Nausea/Vomitin-No Nausea/No Vomiting Muscle Tremors: 1-None Visible, but [place] Anxiety: 1-Mildly Anxious Agitation: 1-Slight > Activity Paroxysmal Sweats: No Perspiration Orientation: 0-Oriented Tacttile Disturbances: 0-None Auditory Disturbances: 0-None Visual Disturbances: 0-None Headache: 0-None Present CIWA-Ar Total Score: 3 BHS Progress Note (SOAP) Subjective: long history of seizure treated with kappra recommend the patient fern picker medication from the pharmacy medication adherence encourage the patient taking bactrim ds bid fern picker medication from pharmacy Objective: 01/25/19 10:02 Vital Signs Temperature 97.5 F L 01/25/19 09:19 Pulse Rate 82 01/25/19 09:19 Respiratory Rate 18 01/25/19 09:19 Blood Pressure 133/93 01/25/19 09:19 O2 Sat by Pulse Oximetry (%) Laboratory Last Values WBC 7.5 K/mm3 (4.0-10.0) 01/22/19 10:00 RBC 4.21 M/mm3 (4.00-5.60) 01/22/19 10:00 Hgb 13.6 GM/dL (11.7-16.9) 01/22/19 10:00 Hct 41.7 % (35.4-49) 01/22/19 10:00 MCV 99.0 fl (80-96) H 01/22/19 10:00 MCH 32.3 pg (25.7-33.7) 01/22/19 10:00 MCHC 32.6 g/dl (32.0-35.9) 01/22/19 10:00 RDW 14.1 % (11.9-15.9) 01/22/19 10:00 Plt Count 267 K/MM3 (134-434) D 01/22/19 10:00 MPV 7.5 fl (7.5-11.1) 01/22/19 10:00 Sodium 144 mmol/L (136-145) 01/22/19 10:00 Potassium 4.7 mmol/L (3.5-5.1) 01/22/19 10:00 Chloride 110 mmol/L (98-107) H 01/22/19 10:00 Carbon Dioxide 30 mmol/L (21-32) 01/22/19 10:00 Anion Gap 4 MMOL/L (8-16) L 01/22/19 10:00 BUN 12 mg/dL (7-18) 01/22/19 10:00 Creatinine 0.9 mg/dL (0.55-1.3) 01/22/19 10:00 Creat Clearance w eGFR 88.27 (>60) 01/22/19 10:00 Random Glucose 70 mg/dL (74-106) L 01/22/19 10:00 Calcium 9.1 mg/dL (8.5-10.1) 01/22/19 10:00 Total Bilirubin 0.1 mg/dL (0.2-1) L 01/22/19 10:00 AST 30 U/L (15-37) 01/22/19 10:00 ALT 31 U/L (13-61) 01/22/19 10:00 Alkaline Phosphatase 77 U/L (45-117) 01/22/19 10:00 Total Protein 7.7 g/dl (6.4-8.2) 01/22/19 10:00 Albumin 4.0 g/dl (3.4-5.0) 01/22/19 10:00 Urine Color Dk yellow 01/23/19 16:56 Urine Appearance Turbid 01/23/19 16:56 Urine pH 6.5 (5.0-8.0) 01/23/19 16:56 Ur Specific [place] 1.030 (1.010-1.035) 01/23/19 16:56 Urine Protein 1+ (NEGATIVE) H 01/23/19 16:56 Urine Glucose (UA) Negative (NEGATIVE) 01/23/19 16:56 Urine Ketones Trace (NEGATIVE) H 01/23/19 16:56 Urine Blood 1+ (NEGATIVE) H 01/23/19 16:56 Urine Nitrite Negative (NEGATIVE) 01/23/19 16:56 Urine Bilirubin Negative (NEGATIVE) 01/23/19 16:56 Urine Urobilinogen 1.0 mg/dL (0.2-1.0) 01/23/19 16:56 Ur Leukocyte Esterase 3+ (NEGATIVE) H 01/23/19 16:56 Urine WBC (Auto) 223 /hpf (0-5) 01/23/19 16:56 Urine RBC (Auto) 4 /hpf (0-4) 01/23/19 16:56 Urine Casts (Auto) 12 /lpf (0-8) 01/23/19 16:56 U Pathogenic Cast Auto None seen /lpf (NEGATIVE) 01/23/19 16:56 U Epithel Cells (Auto) 3.5 /HPF (0-5/HPF) 01/23/19 16:56 Urine Bacteria (Auto) 676.1 /hpf (NEGATIVE) 01/23/19 16:56 RPR Titer Nonreactive (NONREACTIVE) 01/22/19 10:00 HIV 1&2 Antibody Screen Negative 01/22/19 09:50 HIV P24 Antigen Negative 01/22/19 09:50 lab noted uti 01/25/19 10:03 continue bactrim ds bid 01/25/19 10:06 Assessment: 01/25/19 10:07 withdrawal sx Plan: continue detox
[2019-01-25] MEDS: PRENATAL VITAMINS W/ FOLIC ACID TABLET (FP) PO SCH (10:08)
[2019-01-25] MEDS: SULFAMETHOXAZOLE/TRIMETHOPRIM 800MG/160MG D.S. TABLET PO SCH ×2 (10:08→22:12)
[2019-01-25] MEDS: levETIRAcetam 500 MG TABLET (FP) PO SCH ×2 (10:08→22:12)
[2019-01-25] MEDS: NICOTINE 21 MG/24 HOURS TOPICAL PATCH TD SCH (10:08)
[2019-01-25] MEDS ORDERED: levETIRAcetam 250 MG TABLET (FP) PO ONE (18:50)
[2019-01-25] MEDS: THIAMINE HCL 100 MG TABLET (FP) PO SCH (22:12)
[2019-01-26 09:05] VITALS: BP 113/80; PULSE 94; TEMP 98.2
--- NOTE | 2019-01-26 09:32 | DS ---
[facility] Detox Discharge Summary Admission Date: 01/22/19 Discharge Date: 01/26/19 - History Present History: Alcohol Dependence Additional Comments: 54 years old male admitted on 01/22/19 for alcohol withdrawal stabilization completed detox regimen aftercare [facility] Pertinent Past History: bring in medication list and lab report to aftercare appointment - Physical Exam Results Vital Signs: Vital Signs Temperature 98.2 F 01/26/19 09:05 Pulse Rate 94 H 01/26/19 09:05 Respiratory Rate 18 01/26/19 09:05 Blood Pressure 113/80 01/26/19 09:05 O2 Sat by Pulse Oximetry (%) Pertinent Admission Physical Exam Findings: alcohol withdrawal sx Laboratory Last Values WBC 7.5 K/mm3 (4.0-10.0) 01/22/19 10:00 RBC 4.21 M/mm3 (4.00-5.60) 01/22/19 10:00 Hgb 13.6 GM/dL (11.7-16.9) 01/22/19 10:00 Hct 41.7 % (35.4-49) 01/22/19 10:00 MCV 99.0 fl (80-96) H 01/22/19 10:00 MCH 32.3 pg (25.7-33.7) 01/22/19 10:00 MCHC 32.6 g/dl (32.0-35.9) 01/22/19 10:00 RDW 14.1 % (11.9-15.9) 01/22/19 10:00 Plt Count 267 K/MM3 (134-434) D 01/22/19 10:00 MPV 7.5 fl (7.5-11.1) 01/22/19 10:00 Sodium 144 mmol/L (136-145) 01/22/19 10:00 Potassium 4.7 mmol/L (3.5-5.1) 01/22/19 10:00 Chloride 110 mmol/L (98-107) H 01/22/19 10:00 Carbon Dioxide 30 mmol/L (21-32) 01/22/19 10:00 Anion Gap 4 MMOL/L (8-16) L 01/22/19 10:00 BUN 12 mg/dL (7-18) 01/22/19 10:00 Creatinine 0.9 mg/dL (0.55-1.3) 01/22/19 10:00 Creat Clearance w eGFR 88.27 (>60) 01/22/19 10:00 Random Glucose 70 mg/dL (74-106) L 01/22/19 10:00 Calcium 9.1 mg/dL (8.5-10.1) 01/22/19 10:00 Total Bilirubin 0.1 mg/dL (0.2-1) L 01/22/19 10:00 AST 30 U/L (15-37) 01/22/19 10:00 ALT 31 U/L (13-61) 01/22/19 10:00 Alkaline Phosphatase 77 U/L (45-117) 01/22/19 10:00 Total Protein 7.7 g/dl (6.4-8.2) 01/22/19 10:00 Albumin 4.0 g/dl (3.4-5.0) 01/22/19 10:00 Urine Color Dk yellow 01/23/19 16:56 Urine Appearance Turbid 01/23/19 16:56 Urine pH 6.5 (5.0-8.0) 01/23/19 16:56 Ur Specific [place] 1.030 (1.010-1.035) 01/23/19 16:56 Urine Protein 1+ (NEGATIVE) H 01/23/19 16:56 Urine Glucose (UA) Negative (NEGATIVE) 01/23/19 16:56 Urine Ketones Trace (NEGATIVE) H 01/23/19 16:56 Urine Blood 1+ (NEGATIVE) H 01/23/19 16:56 Urine Nitrite Negative (NEGATIVE) 01/23/19 16:56 Urine Bilirubin Negative (NEGATIVE) 01/23/19 16:56 Urine Urobilinogen 1.0 mg/dL (0.2-1.0) 01/23/19 16:56 Ur Leukocyte Esterase 3+ (NEGATIVE) H 01/23/19 16:56 Urine WBC (Auto) 223 /hpf (0-5) 01/23/19 16:56 Urine RBC (Auto) 4 /hpf (0-4) 01/23/19 16:56 Urine Casts (Auto) 12 /lpf (0-8) 01/23/19 16:56 U Pathogenic Cast Auto None seen /lpf (NEGATIVE) 01/23/19 16:56 U Epithel Cells (Auto) 3.5 /HPF (0-5/HPF) 01/23/19 16:56 Urine Bacteria (Auto) 676.1 /hpf (NEGATIVE) 01/23/19 16:56 RPR Titer Nonreactive (NONREACTIVE) 01/22/19 10:00 HIV 1&2 Antibody Screen Negative 01/22/19 09:50 HIV P24 Antigen Negative 01/22/19 09:50 lab noted - Treatment Hospital Course: Detox Protocol Followed, Detoxed Safely, Responded well, Discharged Condition Good, Rehab Referral Accepted Patient has Accepted a Rehab Referral to: [facility] - Medication Discharge Medications: Ambulatory Orders Sertraline HCl [Zoloft -] 50 mg PO DAILY #30 tablet 02/13/17 Ibuprofen 400 mg PO DAILY 01/22/19 Sulfamethoxazole/Trimethoprim [Bactrim DS -] 1 each PO BID #10 tablet 01/25/19 levETIRAcetam [Keppra -] 500 mg PO BID #60 mg 01/25/19 - Diagnosis (1) Alcohol dependence with uncomplicated withdrawal Current Visit: Yes Status: Acute (2) Weight loss Current Visit: Yes Status: Acute (3) Nicotine dependence Current Visit: Yes Status: Acute Qualifiers: Nicotine product type: cigarettes Substance use status: in withdrawal Qualified Code(s): F17.213 - Nicotine dependence, cigarettes, with withdrawal (4) Nicotine dependence Current Visit: Yes Status: Acute Qualifiers: Nicotine product type: cigarettes Substance use status: in withdrawal Qualified Code(s): F17.213 - Nicotine dependence, cigarettes, with withdrawal (5) Seizure Current Visit: Yes Status: Chronic - AMA Did Patient Leave Against Medical Advice: No
[2019-01-26] MEDS: PRENATAL VITAMINS W/ FOLIC ACID TABLET (FP) PO SCH (10:08)
[2019-01-26] MEDS: NICOTINE 21 MG/24 HOURS TOPICAL PATCH TD SCH (10:08)
[2019-01-26] MEDS: SULFAMETHOXAZOLE/TRIMETHOPRIM 800MG/160MG D.S. TABLET PO SCH (10:08)
[2019-01-26] MEDS: chlordiazePOXIDE HCL 10 MG CAPSULE PO SCH (10:10)
[2019-01-26] MEDS: levETIRAcetam 500 MG TABLET (FP) PO SCH (10:33)
== END 2019-01-26 12:15 | disposition other institution (70) | DRG 775 ==
LOC: YASAS 08:43 → Y3N 10:06
PROVIDERS: ADMIT Surgery; ATTEND Surgery
PROC: HZ2ZZZZ Detoxification Services for Substance Abuse Treatment (ICD-10-PCS; principal; 2019-01-22)
DX: F10.230 Alcohol dependence with withdrawal, uncomplicated (principal); F17.213 Nicotine dependence, cigarettes, with withdrawal; G40.509 Epileptic seizures related to external causes, not intractable, without status epilepticus; N39.0 Urinary tract infection, site not specified; R55 Syncope and collapse; K42.9 Umbilical hernia without obstruction or gangrene; K00.0 Anodontia; R63.4 Abnormal weight loss; Z68.20 Body mass index [BMI] 20.0-20.9, adult; Z59.0 Homelessness
CPT/HCPCS: 36415; 80053; 81003; 85027; 86593; 87389

== ENCOUNTER 2019-01-26 12:29 | Inpatient (IN) | payer OTHER ==
--- NOTE | 2019-01-26 10:32 | HP ---
[facility] Rehab Assess/Revision - Admission History Admitted to Rehab from: [facility] Date of Admission to Rehab: 01/26/19 - Findings Detox History & Physical reviewed: Yes Concur with findings: Yes Comments/Additional Findings: transferred from detox to rehab admission as per protocol Inpatient Rehab Admission - Rehab Decision to Admit Inpatient rehab admission?: Yes - Initial Determination Are CD services needed?: Yes Free of communicable disease: Yes Not in need of hospitalization: Yes - Rehab Admission Criteria Previous failed treatment: Yes Poor recovery environment: Yes Comorbidities: Yes Lacks judgement: No Patient is meeting Inpatient Rehab admission criteria:: Yes
[~2019-01-26 12:29] MED LIST: ACETAMINOPHEN 325 MG TABLET (FP) PO PRN; IBUPROFEN 400 MG TABLET (FP) PO PRN; LOPERAMIDE HCL 2 MG CAPSULE PO PRN; MAG HYDROX/AL HYDROX/SIMETH 30 ML UNIT-DOSE CUP PO PRN; MAGNESIUM CITRATE 300 ML BOTTLE PO PRN; MAGNESIUM HYDROX 2400MG/30ML ORAL SUSPENSION 30 ML CUP PO PRN; MENTHOL/PHENOL 1 EACH UD MM PRN; NICOTINE 14 MG/24 HOURS TOPICAL PATCH TD PRN; NICOTINE POLACRILEX 2 MG GUM BUC PRN; P-EPHED 60MG/TRIPROLIDI 2.5MG TABLET PO PRN; guaiFENesin 200 MG/10 ML 10 ML UNIT-DOSE CUPS PO PRN
[2019-01-26] MEDS: levETIRAcetam 500 MG TABLET (FP) PO SCH (21:16)
[2019-01-26] MEDS: THIAMINE HCL 100 MG TABLET (FP) PO SCH (21:16)
[2019-01-26] MEDS: SULFAMETHOXAZOLE/TRIMETHOPRIM 800MG/160MG D.S. TABLET PO SCH (21:16)
[2019-01-26] MEDS ORDERED: MELATONIN 5 MG TABLETS PO PRN (22:00)
[2019-01-27] MEDS: SERTRALINE HCL 50 MG TABLET (FP) PO SCH (09:49)
[2019-01-27] MEDS: PRENATAL VITAMINS W/ FOLIC ACID TABLET (FP) PO SCH (09:49)
[2019-01-27] MEDS: levETIRAcetam 500 MG TABLET (FP) PO SCH ×2 (09:49→21:14)
[2019-01-27] MEDS: SULFAMETHOXAZOLE/TRIMETHOPRIM 800MG/160MG D.S. TABLET PO SCH ×2 (09:49→21:14)
[2019-01-27] MEDS: THIAMINE HCL 100 MG TABLET (FP) PO SCH (21:14)
[2019-01-28] MEDS: SULFAMETHOXAZOLE/TRIMETHOPRIM 800MG/160MG D.S. TABLET PO SCH ×2 (09:45→21:07)
[2019-01-28] MEDS: PRENATAL VITAMINS W/ FOLIC ACID TABLET (FP) PO SCH (09:45)
[2019-01-28] MEDS: levETIRAcetam 500 MG TABLET (FP) PO SCH ×2 (09:45→21:07)
[2019-01-28] MEDS: SERTRALINE HCL 50 MG TABLET (FP) PO SCH (09:45)
[2019-01-28] MEDS: THIAMINE HCL 100 MG TABLET (FP) PO SCH (21:07)
[2019-01-29] MEDS: SERTRALINE HCL 50 MG TABLET (FP) PO SCH (09:50)
[2019-01-29] MEDS: SULFAMETHOXAZOLE/TRIMETHOPRIM 800MG/160MG D.S. TABLET PO SCH ×2 (09:50→21:02)
[2019-01-29] MEDS: levETIRAcetam 500 MG TABLET (FP) PO SCH ×2 (09:50→21:02)
[2019-01-29] MEDS: PRENATAL VITAMINS W/ FOLIC ACID TABLET (FP) PO SCH (09:50)
[2019-01-29] MEDS: THIAMINE HCL 100 MG TABLET (FP) PO SCH (21:02)
[2019-01-30] MEDS: SULFAMETHOXAZOLE/TRIMETHOPRIM 800MG/160MG D.S. TABLET PO SCH ×2 (09:32→21:17)
[2019-01-30] MEDS: levETIRAcetam 500 MG TABLET (FP) PO SCH ×2 (09:32→21:17)
[2019-01-30] MEDS: PRENATAL VITAMINS W/ FOLIC ACID TABLET (FP) PO SCH (09:32)
[2019-01-30] MEDS: SERTRALINE HCL 50 MG TABLET (FP) PO SCH (09:32)
[2019-01-30] MEDS: THIAMINE HCL 100 MG TABLET (FP) PO SCH (21:17)
[2019-01-31] MEDS: SERTRALINE HCL 50 MG TABLET (FP) PO SCH (09:31)
[2019-01-31] MEDS: levETIRAcetam 500 MG TABLET (FP) PO SCH ×2 (09:31→21:13)
[2019-01-31] MEDS: SULFAMETHOXAZOLE/TRIMETHOPRIM 800MG/160MG D.S. TABLET PO SCH ×2 (09:31→21:13)
[2019-01-31] MEDS: PRENATAL VITAMINS W/ FOLIC ACID TABLET (FP) PO SCH (09:31)
[2019-01-31] MEDS: THIAMINE HCL 100 MG TABLET (FP) PO SCH (21:13)
[2019-02-01] MEDS: SERTRALINE HCL 50 MG TABLET (FP) PO SCH (09:54)
[2019-02-01] MEDS: levETIRAcetam 500 MG TABLET (FP) PO SCH ×2 (09:54→21:20)
[2019-02-01] MEDS: PRENATAL VITAMINS W/ FOLIC ACID TABLET (FP) PO SCH (09:54)
[2019-02-01] MEDS: SULFAMETHOXAZOLE/TRIMETHOPRIM 800MG/160MG D.S. TABLET PO SCH ×2 (09:54→21:20)
[2019-02-01] MEDS: THIAMINE HCL 100 MG TABLET (FP) PO SCH (21:20)
[2019-02-02] MEDS: levETIRAcetam 500 MG TABLET (FP) PO SCH ×2 (10:07→21:10)
[2019-02-02] MEDS: SULFAMETHOXAZOLE/TRIMETHOPRIM 800MG/160MG D.S. TABLET PO SCH ×2 (10:07→21:10)
[2019-02-02] MEDS: SERTRALINE HCL 50 MG TABLET (FP) PO SCH (10:07)
[2019-02-02] MEDS: PRENATAL VITAMINS W/ FOLIC ACID TABLET (FP) PO SCH (10:07)
[2019-02-02] MEDS: THIAMINE HCL 100 MG TABLET (FP) PO SCH (21:10)
[2019-02-03] MEDS: SULFAMETHOXAZOLE/TRIMETHOPRIM 800MG/160MG D.S. TABLET PO SCH ×2 (10:06→21:09)
[2019-02-03] MEDS: SERTRALINE HCL 50 MG TABLET (FP) PO SCH (10:06)
[2019-02-03] MEDS: PRENATAL VITAMINS W/ FOLIC ACID TABLET (FP) PO SCH (10:06)
[2019-02-03] MEDS: levETIRAcetam 500 MG TABLET (FP) PO SCH ×2 (10:06→21:09)
[2019-02-03] MEDS: THIAMINE HCL 100 MG TABLET (FP) PO SCH (21:09)
[2019-02-04] MEDS: SERTRALINE HCL 50 MG TABLET (FP) PO SCH (09:49)
[2019-02-04] MEDS: SULFAMETHOXAZOLE/TRIMETHOPRIM 800MG/160MG D.S. TABLET PO SCH ×2 (09:49→21:06)
[2019-02-04] MEDS: PRENATAL VITAMINS W/ FOLIC ACID TABLET (FP) PO SCH (09:49)
[2019-02-04] MEDS: levETIRAcetam 500 MG TABLET (FP) PO SCH ×2 (09:49→21:06)
[2019-02-04] MEDS: THIAMINE HCL 100 MG TABLET (FP) PO SCH (21:06)
[2019-02-05] MEDS: PRENATAL VITAMINS W/ FOLIC ACID TABLET (FP) PO SCH (09:52)
[2019-02-05] MEDS: levETIRAcetam 500 MG TABLET (FP) PO SCH ×2 (09:52→21:11)
[2019-02-05] MEDS: SULFAMETHOXAZOLE/TRIMETHOPRIM 800MG/160MG D.S. TABLET PO SCH ×2 (09:52→21:11)
[2019-02-05] MEDS: SERTRALINE HCL 50 MG TABLET (FP) PO SCH (09:52)
[2019-02-05] MEDS: THIAMINE HCL 100 MG TABLET (FP) PO SCH (21:11)
[2019-02-06] MEDS: SULFAMETHOXAZOLE/TRIMETHOPRIM 800MG/160MG D.S. TABLET PO SCH ×2 (10:03→21:21)
[2019-02-06] MEDS: SERTRALINE HCL 50 MG TABLET (FP) PO SCH (10:03)
[2019-02-06] MEDS: PRENATAL VITAMINS W/ FOLIC ACID TABLET (FP) PO SCH (10:03)
[2019-02-06] MEDS: levETIRAcetam 500 MG TABLET (FP) PO SCH ×2 (10:03→21:21)
[2019-02-06 17:04] LABS: URINE APPEARANCE CLEAR; URINE BILIRUBIN NEGATIVE (NEGATIVE); URINE COLOR YELLOW; URINE GLUCOSE (UA) NEGATIVE (NEGATIVE); URINE KETONE NEGATIVE (NEGATIVE); URINE LEUK ESTERASE NEGATIVE (NEGATIVE); URINE NITRITE NEGATIVE (NEGATIVE); URINE PROTEIN NEGATIVE (NEGATIVE); URINE UROBILINOGEN 0.2 mg/dL (0.2-1.0)
[2019-02-06] MEDS: THIAMINE HCL 100 MG TABLET (FP) PO SCH (21:21)
--- NOTE | 2019-02-07 00:31 | PN ---
S Progress Note Note: Urine Test Results Urine Color Yellow 02/06/19 10:45 Urine Appearance Clear 02/06/19 10:45 Urine pH 7.0 (5.0-8.0) 02/06/19 10:45 Ur Specific [place] 1.024 (1.010-1.035) 02/06/19 10:45 Urine Protein Negative (NEGATIVE) 02/06/19 10:45 Urine Glucose (UA) Negative (NEGATIVE) 02/06/19 10:45 Urine Ketones Negative (NEGATIVE) 02/06/19 10:45 Urine Blood Negative (NEGATIVE) 02/06/19 10:45 Urine Nitrite Negative (NEGATIVE) 02/06/19 10:45 Urine Bilirubin Negative (NEGATIVE) 02/06/19 10:45 Ur Leukocyte Esterase Negative (NEGATIVE) 02/06/19 10:45 REPEAT UA WNL D/C BACTRIM DS
[2019-02-07] MEDS: SERTRALINE HCL 50 MG TABLET (FP) PO SCH (09:29)
[2019-02-07] MEDS: PRENATAL VITAMINS W/ FOLIC ACID TABLET (FP) PO SCH (09:29)
[2019-02-07] MEDS: levETIRAcetam 500 MG TABLET (FP) PO SCH ×2 (09:29→21:06)
[2019-02-07] MEDS: THIAMINE HCL 100 MG TABLET (FP) PO SCH (21:06)
[2019-02-08] MEDS: PRENATAL VITAMINS W/ FOLIC ACID TABLET (FP) PO SCH (09:28)
[2019-02-08] MEDS: SERTRALINE HCL 50 MG TABLET (FP) PO SCH (09:28)
[2019-02-08] MEDS: levETIRAcetam 500 MG TABLET (FP) PO SCH ×2 (09:28→21:07)
[2019-02-08] MEDS: THIAMINE HCL 100 MG TABLET (FP) PO SCH (21:07)
[2019-02-09 06:43] VITALS: BP 122/75; PULSE 76; TEMP 98.1
[2019-02-09] MEDS: PRENATAL VITAMINS W/ FOLIC ACID TABLET (FP) PO SCH (10:02)
[2019-02-09] MEDS: SERTRALINE HCL 50 MG TABLET (FP) PO SCH (10:02)
[2019-02-09] MEDS: levETIRAcetam 500 MG TABLET (FP) PO SCH (10:02)
--- NOTE | 2019-02-09 10:13 | PN ---
[facility] Progress Note Note: PT COMPLETED REHAB AND DISCHARGED TODAY. PT HAS BEEN REFERRED TO [facility] CHEMICAL DEPENDENCY PROGRAM ON [address] [place], [place] FOR CD AFTERCARE. PT REPORTS HE HAS NO CURRENT PCP BUT GOES TO [facility] FOR MEDICAL MANAGEMENT. PT STATED HE WILL PLAN TO GET ONE AFTER DISCHARGE FROM REHAB. Home Medications Medication Instructions Recorded Sertraline HCl [Zoloft -] 50 mg PO DAILY #30 tablet 02/13/17 Ibuprofen 400 mg PO DAILY 01/22/19 levETIRAcetam [Keppra -] 500 mg PO BID #60 mg 01/25/19 Vital Signs 02/09/19 02/09/19 03:30 06:30 Temperature 98.1 F Pulse Rate 76 Respiratory 18 16 Rate Blood Pressure 122/75 Laboratory Tests 02/06/19 10:45 Urine Color Yellow Urine Appearance Clear Urine pH 7.0 Ur Specific [place] 1.024 Urine Protein Negative Urine Glucose (UA) Negative Urine Ketones Negative Urine Blood Negative Urine Nitrite Negative Urine Bilirubin Negative Urine Urobilinogen 0.2 Ur Leukocyte Esterase Negative NAD MEDICALLY STABLE PLAN:D/C PT TODAY FOLLOW UP WITH MEDICAL MANAGEMENT AT [facility] WITHIN 1-2 WEEKS AFTER DISCHARGE. FOLLOW UP WITH CD AFTERCARE RECOMMENDED. dx: Alcohol dependence (Chronic) Cocaine abuse (Chronic) Nicotine dependence (Chronic) Urinary tract infection (Acute) Weight loss (Acute) Hx Seizure (Chronic) Hx Umbilical hernia (Chronic)
== END 2019-02-09 10:50 | disposition home or self-care (01) | DRG 772 ==
LOC: YASAS 12:29 → Y5N 12:30
PROVIDERS: ADMIT Neuromusculoskeletal Medicine & OMM; ATTEND Neuromusculoskeletal Medicine & OMM
PROC: HZ42ZZZ Group Counseling for Substance Abuse Treatment, Cognitive-Behavioral (ICD-10-PCS; principal; 2019-01-26)
DX: F10.20 Alcohol dependence, uncomplicated (principal); F14.10 Cocaine abuse, uncomplicated; F17.210 Nicotine dependence, cigarettes, uncomplicated; G40.909 Epilepsy, unspecified, not intractable, without status epilepticus; R63.4 Abnormal weight loss; K42.9 Umbilical hernia without obstruction or gangrene; K08.109 Complete loss of teeth, unspecified cause, unspecified class; N39.0 Urinary tract infection, site not specified; Z59.0 Homelessness
CPT/HCPCS: 81003

== ENCOUNTER 2020-08-09 12:53 | Inpatient (IN) | payer OTHER ==
[2020-08-09 14:10] VITALS: BMI 22.8
[2020-08-09] MEDS ORDERED: ONDANSETRON *ODT* 4 MG TABLET SL PRN (15:08)
[2020-08-09] MEDS ORDERED: MAG HYDROX/AL HYDROX/SIMETH 30 ML UNIT-DOSE CUP PO PRN (15:08)
[2020-08-09] MEDS ORDERED: BISMUTH SUBSALICYLATE 262 MG/15 ML BTL PO PRN (15:08)
[2020-08-09] MEDS ORDERED: NICOTINE POLACRILEX 2 MG GUM BUC PRN (15:08)
[2020-08-09] MEDS ORDERED: METHOCARBAMOL 500 MG TABLET PO PRN (15:08)
[2020-08-09] MEDS ORDERED: MENTHOL/PHENOL 1 EACH UD MM PRN (15:08)
[2020-08-09] MEDS ORDERED: chlordiazePOXIDE HCL 25 MG CAPSULE PO PRN (15:08)
[2020-08-09] MEDS ORDERED: IBUPROFEN 400 MG TABLET (FP) PO PRN (15:08)
[2020-08-09] MEDS ORDERED: MAGNESIUM CITRATE 300 ML BOTTLE PO PRN (15:08)
[2020-08-09] MEDS ORDERED: ACETAMINOPHEN 325 MG TABLET (FP) PO PRN ×2 (15:08)
[2020-08-09] MEDS ORDERED: MAGNESIUM HYDROX 2400MG/30ML ORAL SUSPENSION 30 ML CUP PO PRN (15:08)
[2020-08-09] MEDS: chlordiazePOXIDE HCL 25 MG CAPSULE PO SCH ×2 (17:27→22:21)
[2020-08-09] MEDS: hydrOXYzine PAMOATE 25 MG CAPSULE (FP) PO SCH ×2 (17:28→22:21)
[2020-08-09] MEDS: THIAMINE HCL 100 MG TABLET (FP) PO SCH (22:20)
[2020-08-09] MEDS: levETIRAcetam 500 MG TABLET (FP) PO SCH (22:21)
[2020-08-09] MEDS: MELATONIN 5 MG TABLETS PO SCH (22:21)
[2020-08-10] MEDS: hydrOXYzine PAMOATE 25 MG CAPSULE (FP) PO SCH ×5 (06:32→22:53)
[2020-08-10] MEDS: chlordiazePOXIDE HCL 25 MG CAPSULE PO SCH ×4 (06:32→22:53)
[2020-08-10 10:00] LABS: HEMATOCRIT 39.4 % (35.4-49); HEMOGLOBIN 12.7 GM/dL (11.7-16.9); MCHC 32.3 g/dl (32.0-35.9); MEAN CELL VOLUME 96.2 fl (80-96); MEAN PLT VOLUME 8.7 fl (7.5-11.1); PLATELET COUNT 201 K/MM3 (134-434); RBC 4.09 M/mm3 (4.00-5.60); RDW 13.5 % (11.9-15.9); WHITE BLOOD COUNT 9.7 K/mm3 (4.0-10.0)
[2020-08-10 10:13] LABS: POTASSIUM 3.9 mmol/L (3.5-5.1)
[2020-08-10 10:15] LABS: CALCIUM 8.5 mg/dL (8.5-10.1)
[2020-08-10 10:16] LABS: BLOOD UREA NITROGEN 11.6 mg/dL (7-18)
[2020-08-10 10:19] LABS: CREATININE 0.9 mg/dL (0.55-1.3)
[2020-08-10 10:20] LABS: BILIRUBIN,TOTAL 0.7 mg/dL (0.2-1); TOT PROT 7.2 g/dl (6.4-8.2)
[2020-08-10] MEDS: levETIRAcetam 500 MG TABLET (FP) PO SCH ×2 (10:30→22:52)
[2020-08-10] MEDS: PRENATAL VITAMINS W/ FOLIC ACID TABLET (FP) PO SCH (10:30)
[2020-08-10] MEDS: NICOTINE 21 MG/24 HOURS TOPICAL PATCH TD SCH (10:30)
[2020-08-10 11:08] LABS: HIV INTERPRETATION NEGATIVE (NEGATIVE)
[2020-08-10] MEDS: MELATONIN 5 MG TABLETS PO SCH (22:52)
[2020-08-10] MEDS: THIAMINE HCL 100 MG TABLET (FP) PO SCH (22:53)
[2020-08-11] MEDS: hydrOXYzine PAMOATE 25 MG CAPSULE (FP) PO SCH ×5 (06:04→22:46)
[2020-08-11] MEDS: chlordiazePOXIDE HCL 25 MG CAPSULE PO SCH ×4 (06:04→22:33)
[2020-08-11] MEDS: levETIRAcetam 500 MG TABLET (FP) PO SCH ×2 (10:31→22:33)
[2020-08-11] MEDS: NICOTINE 21 MG/24 HOURS TOPICAL PATCH TD SCH (10:31)
[2020-08-11] MEDS: PRENATAL VITAMINS W/ FOLIC ACID TABLET (FP) PO SCH (10:31)
[2020-08-11] MEDS: THIAMINE HCL 100 MG TABLET (FP) PO SCH (22:33)
[2020-08-11] MEDS: MELATONIN 5 MG TABLETS PO SCH (23:22)
[2020-08-12] MEDS ORDERED: chlordiazePOXIDE HCL 10 MG CAPSULE PO PRN
[2020-08-12] MEDS: chlordiazePOXIDE HCL 10 MG CAPSULE PO SCH ×4 (06:46→22:24)
[2020-08-12] MEDS: hydrOXYzine PAMOATE 25 MG CAPSULE (FP) PO SCH ×5 (06:46→22:24)
[2020-08-12] MEDS: PRENATAL VITAMINS W/ FOLIC ACID TABLET (FP) PO SCH (10:19)
[2020-08-12] MEDS: levETIRAcetam 500 MG TABLET (FP) PO SCH ×2 (10:20→22:23)
[2020-08-12] MEDS: NICOTINE 21 MG/24 HOURS TOPICAL PATCH TD SCH (10:20)
[2020-08-12] MEDS: THIAMINE HCL 100 MG TABLET (FP) PO SCH (22:23)
[2020-08-12] MEDS: MELATONIN 5 MG TABLETS PO SCH (22:24)
[2020-08-13] MEDS: hydrOXYzine PAMOATE 25 MG CAPSULE (FP) PO SCH ×5 (06:18→22:40)
[2020-08-13] MEDS: chlordiazePOXIDE HCL 10 MG CAPSULE PO SCH ×2 (06:18→17:54)
[2020-08-13] MEDS: NICOTINE 21 MG/24 HOURS TOPICAL PATCH TD SCH (10:05)
[2020-08-13] MEDS: levETIRAcetam 500 MG TABLET (FP) PO SCH ×2 (10:06→22:40)
[2020-08-13] MEDS: PRENATAL VITAMINS W/ FOLIC ACID TABLET (FP) PO SCH (10:06)
[2020-08-13] MEDS: THIAMINE HCL 100 MG TABLET (FP) PO SCH (22:40)
[2020-08-13] MEDS: MELATONIN 5 MG TABLETS PO SCH (22:40)
[2020-08-14] MEDS ORDERED: chlordiazePOXIDE HCL 10 MG CAPSULE PO ONE (05:00)
[2020-08-14 06:13] VITALS: BP 128/84; PULSE 76; TEMP 96.9
[2020-08-14] MEDS: hydrOXYzine PAMOATE 25 MG CAPSULE (FP) PO SCH (06:34)
== END 2020-08-14 09:11 | disposition home or self-care (01) | DRG 775 ==
LOC: YASAS 12:53 → Y3N 15:42
PROVIDERS: ADMIT Allergy & Immunology; ATTEND Allergy & Immunology
PROC: HZ2ZZZZ Detoxification Services for Substance Abuse Treatment (ICD-10-PCS; principal; 2020-08-09)
DX: F10.230 Alcohol dependence with withdrawal, uncomplicated (principal); F17.210 Nicotine dependence, cigarettes, uncomplicated; F19.24 Other psychoactive substance dependence with psychoactive substance-induced mood disorder; F10.24 Alcohol dependence with alcohol-induced mood disorder; F32.9 Major depressive disorder, single episode, unspecified; G40.909 Epilepsy, unspecified, not intractable, without status epilepticus; K21.9 Gastro-esophageal reflux disease without esophagitis; K42.9 Umbilical hernia without obstruction or gangrene; K00.0 Anodontia; R07.89 Other chest pain; R63.4 Abnormal weight loss; Z68.22 Body mass index [BMI] 22.0-22.9, adult; R26.2 Difficulty in walking, not elsewhere classified; M25.561 Pain in right knee; S50.311D Abrasion of right elbow, subsequent encounter; W19.XXXD Unspecified fall, subsequent encounter; Z91.012 Allergy to eggs; Z91.018 Allergy to other foods; Z56.0 Unemployment, unspecified; Z59.0 Homelessness
CPT/HCPCS: 36415; 80053; 80177; 82962; 85027; 86780; 87389; 93005; 93010; C9803; U0003

== ENCOUNTER 2020-08-10 20:23 | Emergency (ER) | payer OTHER ==
[2020-08-10 20:58] VITALS: BMI 23.6
[2020-08-10 22:48] LABS: BASO % 0.8 % (0-2.0); EOS % 4.6 % (0-4.5); HEMATOCRIT 37.6 % (35.4-49); HEMOGLOBIN 12.4 GM/dL (11.7-16.9); LYMPH % 41.1 % (8-40); MCH 31.2 pg (25.7-33.7); MCHC 32.9 g/dl (32.0-35.9); MEAN CELL VOLUME 94.7 fl (80-96); MEAN PLT VOLUME 8.4 fl (7.5-11.1); NEUT % 44.5 % (42.8-82.8); PLATELET COUNT 186 K/MM3 (134-434); RBC 3.97 M/mm3 (4.00-5.60); RDW 13.4 % (11.9-15.9); WHITE BLOOD COUNT 7.2 K/mm3 (4.0-10.0)
[2020-08-10 23:12] LABS: CHLORIDE 107 mmol/L (98-107); POTASSIUM 4.1 mmol/L (3.5-5.1); SODIUM 140 mmol/L (136-145)
[2020-08-10 23:14] LABS: CALCIUM 9.3 mg/dL (8.5-10.1)
[2020-08-10 23:15] LABS: ALBUMIN 3.2 g/dl (3.4-5.0); ANION GAP 6 MMOL/L (8-16); CO2 27 mmol/L (21-32); GLUCOSE,RANDOM 139 mg/dL (74-106)
[2020-08-10 23:18] LABS: SGOT/AST 33 U/L (15-37); SGPT/ALT 33 U/L (13-61)
[2020-08-10 23:19] LABS: BILIRUBIN,TOTAL 0.2 mg/dL (0.2-1)
[2020-08-10 23:20] LABS: TOT PROT 6.5 g/dl (6.4-8.2)
[2020-08-10 23:21] LABS: ALK PHOS 97 U/L (45-117)
[2020-08-11] MEDS ORDERED: ACETAMINOPHEN 325 MG TABLET (FP) PO ONE (03:22)
[2020-08-11] MEDS ORDERED: ACETAMINOPHEN 325 MG TABLET (FP) ONE (03:33)
[2020-08-11 05:49] VITALS: BP 137/84; PULSE 78; TEMP 97.6
== END 2020-08-11 05:45 | disposition home or self-care (01) ==
LOC: JER 20:23
DX: R07.9 Chest pain, unspecified (principal)
CPT/HCPCS: 36415; 71045-TC-FY; 80053; 84484; 85025; 93005; 93010; 99285-25

== ENCOUNTER 2021-05-17 11:08 | Inpatient (IN) | payer OTHER ==
[2021-05-17 11:56] VITALS: BMI 23.3
[2021-05-17] MEDS ORDERED: MAG HYDROX/AL HYDROX/SIMETH 30 ML UNIT-DOSE CUP PO PRN (12:56)
[2021-05-17] MEDS ORDERED: METHOCARBAMOL 500 MG TABLET PO PRN (12:56)
[2021-05-17] MEDS ORDERED: diazePAM 5 MG TABLET PO PRN (12:56)
[2021-05-17] MEDS ORDERED: MENTHOL/PHENOL 1 EACH UD MM PRN (12:56)
[2021-05-17] MEDS ORDERED: MAGNESIUM HYDROX 2400MG/30ML ORAL SUSPENSION 30 ML CUP PO PRN (12:56)
[2021-05-17] MEDS ORDERED: ACETAMINOPHEN 325 MG TABLET (FP) PO PRN ×2 (12:56)
[2021-05-17] MEDS ORDERED: MAGNESIUM CITRATE 300 ML BOTTLE PO PRN (12:56)
[2021-05-17] MEDS ORDERED: NICOTINE 10 MG CARTRIDGE (INHALER) IH PRN (12:56)
[2021-05-17] MEDS ORDERED: ONDANSETRON *ODT* 4 MG TABLET SL PRN (12:56)
[2021-05-17] MEDS ORDERED: IBUPROFEN 400 MG TABLET (FP) PO PRN (12:56)
[2021-05-17] MEDS ORDERED: BISMUTH SUBSALICYLATE 524 MG/30 ML PO PRN (12:56)
[2021-05-17] MEDS: hydrOXYzine PAMOATE 25 MG CAPSULE (FP) PO SCH ×3 (13:41→23:13)
[2021-05-17] MEDS: PRENATAL VITAMINS W/ FOLIC ACID TABLET (FP) PO SCH (13:41)
[2021-05-17] MEDS: NICOTINE 14 MG/24 HOURS TOPICAL PATCH TD SCH (13:41)
[2021-05-17] MEDS: diazePAM 5 MG TABLET PO SCH ×2 (18:32→23:13)
[2021-05-17] MEDS ORDERED: levETIRAcetam 500 MG TABLET (FP) PO SCH (22:00)
[2021-05-17] MEDS: levETIRAcetam 250 MG TABLET PO SCH (22:16)
[2021-05-17] MEDS: THIAMINE HCL 100 MG TABLET (FP) PO SCH (22:16)
[2021-05-17] MEDS: MELATONIN 5 MG TABLETS PO SCH (23:13)
[2021-05-18] MEDS: diazePAM 5 MG TABLET PO SCH ×4 (05:58→22:36)
[2021-05-18] MEDS: hydrOXYzine PAMOATE 25 MG CAPSULE (FP) PO SCH ×5 (05:58→22:36)
[2021-05-18] MEDS: levETIRAcetam 250 MG TABLET PO SCH ×2 (09:36→22:35)
[2021-05-18] MEDS: NICOTINE 14 MG/24 HOURS TOPICAL PATCH TD SCH (10:25)
[2021-05-18] MEDS: PRENATAL VITAMINS W/ FOLIC ACID TABLET (FP) PO SCH (10:25)
[2021-05-18 13:44] LABS: HEMATOCRIT 40.2 % (35.4-49); HEMOGLOBIN 13.5 GM/dL (11.7-16.9); MCH 32.3 pg (25.7-33.7); MCHC 33.6 g/dl (32.0-35.9); MEAN CELL VOLUME 96.1 fl (80-96); MEAN PLT VOLUME 8.2 fl (7.5-11.1); PLATELET COUNT 226 10^3/uL (134-434); RBC 4.18 M/mm3 (4.00-5.60); RDW 13.4 % (11.9-15.9); WHITE BLOOD COUNT 6.7 K/mm3 (4.0-10.0)
[2021-05-18 14:14] LABS: ALBUMIN 3.4 g/dl (3.4-5.0); CALCIUM 8.7 mg/dL (8.5-10.1)
[2021-05-18 14:17] LABS: CREATININE 0.9 mg/dL (0.55-1.3)
[2021-05-18 14:19] LABS: BILIRUBIN,TOTAL 0.4 mg/dL (0.2-1); TOT PROT 6.6 g/dl (6.4-8.2)
[2021-05-18] MEDS: THIAMINE HCL 100 MG TABLET (FP) PO SCH (22:34)
[2021-05-18] MEDS: MELATONIN 5 MG TABLETS PO SCH (22:34)
[2021-05-19] MEDS: hydrOXYzine PAMOATE 25 MG CAPSULE (FP) PO SCH ×5 (06:13→23:33)
[2021-05-19] MEDS: diazePAM 5 MG TABLET PO SCH ×3 (06:13→23:32)
[2021-05-19] MEDS: PRENATAL VITAMINS W/ FOLIC ACID TABLET (FP) PO SCH (10:14)
[2021-05-19] MEDS: NICOTINE 14 MG/24 HOURS TOPICAL PATCH TD SCH (10:14)
[2021-05-19] MEDS: levETIRAcetam 250 MG TABLET PO SCH ×2 (10:14→22:21)
[2021-05-19] MEDS: MELATONIN 5 MG TABLETS PO SCH (23:32)
[2021-05-19] MEDS: THIAMINE HCL 100 MG TABLET (FP) PO SCH (23:33)
[2021-05-20] MEDS: diazePAM 5 MG TABLET PO SCH ×2 (06:43→22:00)
[2021-05-20] MEDS: hydrOXYzine PAMOATE 25 MG CAPSULE (FP) PO SCH ×5 (06:43→22:00)
[2021-05-20] MEDS: levETIRAcetam 250 MG TABLET PO SCH ×2 (10:00→21:58)
[2021-05-20] MEDS: NICOTINE 14 MG/24 HOURS TOPICAL PATCH TD SCH (10:01)
[2021-05-20] MEDS: PRENATAL VITAMINS W/ FOLIC ACID TABLET (FP) PO SCH (10:01)
[2021-05-20] MEDS: MELATONIN 5 MG TABLETS PO SCH (22:00)
[2021-05-20] MEDS: THIAMINE HCL 100 MG TABLET (FP) PO SCH (22:00)
[2021-05-21] MEDS ORDERED: diazePAM 5 MG TABLET PO ONE (06:00)
[2021-05-21] MEDS: hydrOXYzine PAMOATE 25 MG CAPSULE (FP) PO SCH ×3 (06:33→13:21)
[2021-05-21] MEDS: levETIRAcetam 250 MG TABLET PO SCH (10:17)
[2021-05-21] MEDS: PRENATAL VITAMINS W/ FOLIC ACID TABLET (FP) PO SCH (10:17)
[2021-05-21] MEDS: NICOTINE 14 MG/24 HOURS TOPICAL PATCH TD SCH (10:18)
[2021-05-21 14:10] VITALS: BP 135/95; PULSE 72; TEMP 97.9
== END 2021-05-21 14:25 | disposition other institution (70) | DRG 774 ==
LOC: YASAS 11:08 → Y6N 12:41
PROVIDERS: ADMIT Allergy & Immunology; ATTEND Allergy & Immunology
PROC: HZ2ZZZZ Detoxification Services for Substance Abuse Treatment (ICD-10-PCS; principal; 2021-05-17)
DX: F10.230 Alcohol dependence with withdrawal, uncomplicated (principal); F14.10 Cocaine abuse, uncomplicated; F17.213 Nicotine dependence, cigarettes, with withdrawal; F10.282 Alcohol dependence with alcohol-induced sleep disorder; F41.9 Anxiety disorder, unspecified; F32.9 Major depressive disorder, single episode, unspecified; G40.909 Epilepsy, unspecified, not intractable, without status epilepticus; R63.4 Abnormal weight loss; Z68.23 Body mass index [BMI] 23.0-23.9, adult; Z99.89 Dependence on other enabling machines and devices; Z91.012 Allergy to eggs; Z91.018 Allergy to other foods; Z59.0 Homelessness
CPT/HCPCS: 36415; 80053; 85027; 86780; C9803; U0003; U0005

== ENCOUNTER 2021-05-21 14:25 | Inpatient (IN) | payer OTHER ==
[~2021-05-21 14:25] MED LIST changes: -MENTHOL/PHENOL 1 EACH UD MM PRN; +NICOTINE 10 MG CARTRIDGE (INHALER) IH PRN; -NICOTINE 14 MG/24 HOURS TOPICAL PATCH TD PRN; +NICOTINE POLACRILEX 2 MG GUM BC PRN; -NICOTINE POLACRILEX 2 MG GUM BUC PRN
[2021-05-21] MEDS: hydrOXYzine PAMOATE 25 MG CAPSULE (FP) PO SCH ×3 (14:37→21:54)
[2021-05-21] MEDS: THIAMINE HCL 100 MG TABLET (FP) PO SCH (21:53)
[2021-05-21] MEDS: MELATONIN 5 MG TABLETS PO SCH (21:53)
[2021-05-21] MEDS: levETIRAcetam XR 750 MG TAB PO SCH (22:58)
[2021-05-22] MEDS: hydrOXYzine PAMOATE 25 MG CAPSULE (FP) PO SCH ×2 (06:45→10:40)
[2021-05-22] MEDS: levETIRAcetam XR 750 MG TAB PO SCH (10:39)
[2021-05-22] MEDS: PRENATAL VITAMINS W/ FOLIC ACID TABLET (FP) PO SCH (10:39)
[2021-05-22] MEDS: NICOTINE 14 MG/24 HOURS TOPICAL PATCH TD SCH (10:39)
[2021-05-22] MEDS ORDERED: hydrOXYzine PAMOATE 25 MG CAPSULE (FP) PO PRN (10:48)
[2021-05-22] MEDS: MELATONIN 5 MG TABLETS PO SCH (21:36)
[2021-05-22] MEDS: THIAMINE HCL 100 MG TABLET (FP) PO SCH (21:36)
[2021-05-23] MEDS: levETIRAcetam XR 750 MG TAB PO SCH ×3 (00:37→21:22)
[2021-05-23] MEDS: NICOTINE 14 MG/24 HOURS TOPICAL PATCH TD SCH (09:39)
[2021-05-23] MEDS: PRENATAL VITAMINS W/ FOLIC ACID TABLET (FP) PO SCH (09:39)
[2021-05-23] MEDS ORDERED: PT OWN MED DRAWER 7, Y5N ONE (19:15)
[2021-05-23] MEDS: THIAMINE HCL 100 MG TABLET (FP) PO SCH (21:22)
[2021-05-23] MEDS: MELATONIN 5 MG TABLETS PO SCH (21:22)
[2021-05-24] MEDS: levETIRAcetam XR 750 MG TAB PO SCH ×2 (09:45→21:22)
[2021-05-24] MEDS: PRENATAL VITAMINS W/ FOLIC ACID TABLET (FP) PO SCH (09:45)
[2021-05-24] MEDS: NICOTINE 14 MG/24 HOURS TOPICAL PATCH TD SCH (09:45)
[2021-05-24] MEDS ORDERED: PT OWN MED DRAWER 7, Y5N ONE (18:54)
[2021-05-24] MEDS: THIAMINE HCL 100 MG TABLET (FP) PO SCH (21:23)
[2021-05-24] MEDS: MELATONIN 5 MG TABLETS PO SCH (21:23)
[2021-05-25] MEDS: levETIRAcetam XR 750 MG TAB PO SCH ×2 (10:03→21:22)
[2021-05-25] MEDS: NICOTINE 14 MG/24 HOURS TOPICAL PATCH TD SCH (10:03)
[2021-05-25] MEDS: PRENATAL VITAMINS W/ FOLIC ACID TABLET (FP) PO SCH (10:03)
[2021-05-25] MEDS ORDERED: PT OWN MED DRAWER 7, Y5N ONE (20:08)
[2021-05-25] MEDS: MELATONIN 5 MG TABLETS PO SCH (21:22)
[2021-05-25] MEDS: THIAMINE HCL 100 MG TABLET (FP) PO SCH (21:22)
[2021-05-26] MEDS ORDERED: PT OWN MED DRAWER 7, Y5N ONE ×2 (08:32→19:49)
[2021-05-26] MEDS: levETIRAcetam XR 750 MG TAB PO SCH ×2 (10:18→21:43)
[2021-05-26] MEDS: PRENATAL VITAMINS W/ FOLIC ACID TABLET (FP) PO SCH (10:18)
[2021-05-26] MEDS: NICOTINE 14 MG/24 HOURS TOPICAL PATCH TD SCH (10:18)
[2021-05-26] MEDS: THIAMINE HCL 100 MG TABLET (FP) PO SCH (21:44)
[2021-05-26] MEDS: MELATONIN 5 MG TABLETS PO SCH (21:44)
[2021-05-27] MEDS: PRENATAL VITAMINS W/ FOLIC ACID TABLET (FP) PO SCH (10:07)
[2021-05-27] MEDS: NICOTINE 14 MG/24 HOURS TOPICAL PATCH TD SCH (10:08)
[2021-05-27] MEDS: levETIRAcetam XR 750 MG TAB PO SCH ×2 (10:08→21:29)
[2021-05-27] MEDS: THIAMINE HCL 100 MG TABLET (FP) PO SCH (21:29)
[2021-05-27] MEDS: MELATONIN 5 MG TABLETS PO SCH (21:29)
[2021-05-28] MEDS: PRENATAL VITAMINS W/ FOLIC ACID TABLET (FP) PO SCH (09:49)
[2021-05-28] MEDS: levETIRAcetam XR 750 MG TAB PO SCH ×2 (09:49→22:06)
[2021-05-28] MEDS: NICOTINE 14 MG/24 HOURS TOPICAL PATCH TD SCH (09:49)
[2021-05-28] MEDS ORDERED: PT OWN MED DRAWER 7, Y5N ONE (19:25)
[2021-05-28] MEDS: THIAMINE HCL 100 MG TABLET (FP) PO SCH (22:06)
[2021-05-28] MEDS: MELATONIN 5 MG TABLETS PO SCH (22:07)
[2021-05-29] MEDS: NICOTINE 14 MG/24 HOURS TOPICAL PATCH TD SCH (09:55)
[2021-05-29] MEDS: PRENATAL VITAMINS W/ FOLIC ACID TABLET (FP) PO SCH (09:55)
[2021-05-29] MEDS: levETIRAcetam XR 750 MG TAB PO SCH ×2 (09:55→21:12)
[2021-05-29] MEDS ORDERED: PT OWN MED DRAWER 7, Y5N ONE (20:34)
[2021-05-29] MEDS: THIAMINE HCL 100 MG TABLET (FP) PO SCH (21:12)
[2021-05-29] MEDS: MELATONIN 5 MG TABLETS PO SCH (21:12)
[2021-05-30] MEDS ORDERED: PT OWN MED DRAWER 7, Y5N ONE (08:32)
[2021-05-30] MEDS: PRENATAL VITAMINS W/ FOLIC ACID TABLET (FP) PO SCH (10:06)
[2021-05-30] MEDS: levETIRAcetam XR 750 MG TAB PO SCH ×2 (10:06→21:28)
[2021-05-30] MEDS: NICOTINE 14 MG/24 HOURS TOPICAL PATCH TD SCH (10:06)
[2021-05-30] MEDS: MELATONIN 5 MG TABLETS PO SCH (21:28)
[2021-05-30] MEDS: THIAMINE HCL 100 MG TABLET (FP) PO SCH (21:28)
[2021-05-31] MEDS: PRENATAL VITAMINS W/ FOLIC ACID TABLET (FP) PO SCH (10:16)
[2021-05-31] MEDS: NICOTINE 14 MG/24 HOURS TOPICAL PATCH TD SCH (10:17)
[2021-05-31] MEDS: levETIRAcetam XR 750 MG TAB PO SCH ×2 (10:17→21:40)
[2021-05-31] MEDS: THIAMINE HCL 100 MG TABLET (FP) PO SCH (21:40)
[2021-05-31] MEDS: MELATONIN 5 MG TABLETS PO SCH (21:40)
[2021-06-01] MEDS: levETIRAcetam XR 750 MG TAB PO SCH ×2 (10:04→21:21)
[2021-06-01] MEDS: PRENATAL VITAMINS W/ FOLIC ACID TABLET (FP) PO SCH (10:04)
[2021-06-01] MEDS: NICOTINE 14 MG/24 HOURS TOPICAL PATCH TD SCH (10:04)
[2021-06-01] MEDS ORDERED: PT OWN MED DRAWER 7, Y5N ONE (20:36)
[2021-06-01] MEDS: MELATONIN 5 MG TABLETS PO SCH (21:21)
[2021-06-01] MEDS: THIAMINE HCL 100 MG TABLET (FP) PO SCH (21:21)
[2021-06-02 06:32] VITALS: BP 116/81; PULSE 80; TEMP 97.1
[2021-06-02] MEDS: levETIRAcetam XR 750 MG TAB PO SCH (09:12)
[2021-06-02] MEDS: PRENATAL VITAMINS W/ FOLIC ACID TABLET (FP) PO SCH (09:12)
[2021-06-02] MEDS: NICOTINE 14 MG/24 HOURS TOPICAL PATCH TD SCH (09:12)
== END 2021-06-02 09:30 | disposition home or self-care (01) | DRG 772 ==
LOC: YASAS 14:25 → Y5N 14:26
PROVIDERS: ADMIT Allergy & Immunology; ATTEND Allergy & Immunology
PROC: HZ42ZZZ Group Counseling for Substance Abuse Treatment, Cognitive-Behavioral (ICD-10-PCS; principal; 2021-05-21)
DX: F10.20 Alcohol dependence, uncomplicated (principal); F14.20 Cocaine dependence, uncomplicated; F17.210 Nicotine dependence, cigarettes, uncomplicated; G40.909 Epilepsy, unspecified, not intractable, without status epilepticus; R63.4 Abnormal weight loss; Z68.23 Body mass index [BMI] 23.0-23.9, adult; Z99.89 Dependence on other enabling machines and devices